=== PATIENT | female | born 1990 | race Caucasian/White ===

== ENCOUNTER 2021-03-17 09:35 | Outpatient (REF) | payer OTHER, SELFPAY ==
[2021-03-17 11:31] LABS: Hematocrit 35.3 % (37-47); Hemoglobin 10.7 g/dl (12.0-16.0); Mean Corpuscular HGB Conc 30.3 g/dl (31.0-35.0); Mean Corpuscular Hemoglobin 22.3 pg (27.0-33.0); Mean Corpuscular Volume 73.5 fL (80-98); Mean Platelet Volume 10.8 fL (9.4-12.3); Platelet Count 181 X10*3/uL (160-400); Red Cell Distribution Width 14.6 % (11.0-16.0); White Blood Count 3.9 X10*3/uL (4.8-10.8)
[2021-03-17 12:01] LABS: Alanine Aminotransferase 13 U/L (0-31); Albumin Level 4.3 g/dL (3.5-5.0); Alkaline Phosphatase 102 U/L (39-117); Anion Gap 11 (12-20); Aspartate Amino Transferase 19 U/L (5-31); Blood Urea Nitrogen 12 mg/dL (9-16); Calcium 9.2 mg/dL (8.4-10.2); Carbon Dioxide 25 mmol/L (22-29); Chloride 106 mmol/L (96-108); Estimated Glomerular Filt Rate > 60; Glucose Random 78 mg/dL (60-115); Potassium 4.2 mmol/L (3.3-5.1); Sodium 138 mmol/L (135-145); Total Protein 7.2 g/dL (6.5-8.0)
[2021-03-17 12:08] LABS: TSH reflex Free T4 0.57 uIU/mL (0.32-4.0)
== END 2021-03-17 09:36 | disposition home or self-care (01) ==
LOC: HO.HMGCLDS 09:35
PROVIDERS: PCP Internal Medicine; Visit Provider Internal Medicine
DX: R53.83 Other fatigue (principal); R39.15 Urgency of urination
CPT/HCPCS: 36415; 80053; 84443; 85027; 87086

== ENCOUNTER 2021-04-14 14:24 | Outpatient (REF) | payer OTHER, SELFPAY ==
[2021-04-14 17:08] LABS: Glucose Urine UA NEG (NEG); Leukocyte Esterase Urine NEG (NEG); Nitrite Urine NEG (NEG); Specific Gravity - Urine <= 1.005 (1.005-1.025); Urine Blood NEG (NEG); Urine Ketones NEG (NEG); Urine Protein NEG (NEG-TRACE)
[2021-04-14 17:10] LABS: Appearance Urine CLEAR; Color Urine YELLOW
[2021-04-14 17:57] LABS: Unsaturated Iron Binding 327 ug/dL
[2021-04-14 18:34] LABS: Iron 78 mcg/dL (30-160); Percent Iron Saturation 19 % (15-50); Total Iron Binding Capacity 405 mcg/dL (228-428)
== END 2021-04-14 14:25 | disposition home or self-care (01) ==
LOC: HO.HMGCLDS 14:24
PROVIDERS: PCP Internal Medicine; Visit Provider Internal Medicine
DX: R30.0 Dysuria (principal); R00.2 Palpitations; D64.9 Anemia, unspecified
CPT/HCPCS: 36415; 81003; 83540

== ENCOUNTER → 2021-05-12 14:00 | Outpatient (REF) | payer OTHER, SELFPAY ==
--- NOTE | 2021-05-12 14:35 | ECG_ITS ---
Hook-up date: 2021-05-12 14:32:00 Duration: 47:59:00 Test Indications: PALPITATIONS Medications: 715139 QRS complexes * Ventricular ectopics which represent % of total QRS comp. * Supraventricular ectopics which represent % of total QRS comp. * Paced QRS complexs which represent % of total QRS comp. VENTRICULAR ECTOPY * Isolated * Bigeminal Cycles * Couplets * Runs * Beats in Runs * Beats LONGEST at * BPM at :: -- * Beats FASTEST at * BPM at :: -- SUPRAVENTRICULAR ECTOPY * Isolated * Couplets * Runs * Beats in Runs * Beats LONGEST at * BPM at :: -- * Beats FASTEST at * BPM at :: -- HEART RATES 48 MIN at 04:42:15 2021-05-13 72 AVG 128 MAX at 14:32:38 2021-05-12 LONGEST RR 1.5520 secs at 04:42:11 2021-05-13 S-T LEVELS Channel 1 - 128 mm at 14:32:00 2021-05-12 - 128 mm at 14:32:00 2021-05-12 Channel 2 - 128 mm at 14:32:00 2021-05-12 - 128 mm at 14:32:00 2021-05-12 Channel 3 - 128 mm at 03:35:11 -- - 128 mm at 03:35:11 Underlying rhythm is sinus; Average ventricular rate 72/min; range 48-128/min; No significant ectopy, tachy or braxton-arrhythmias; P wave polarity seems variable and may indicate intermittent ectopic focus (vs non-specific); 'flutter', 'chest burning' in diary associated with sinus rhythm. Referred By: Erin Box Overread By: JACKIE KENYON
== END ==
LOC: HO.CARD 14:00
PROVIDERS: Visit Provider Internal Medicine
DX: R00.2 Palpitations (principal)
CPT/HCPCS: 93225; 93226

== ENCOUNTER 2021-08-19 12:09 | Outpatient (REF) | payer OTHER, SELFPAY ==
[2021-08-19 13:53] LABS: Appearance Urine CLEAR; Color Urine DK YELLOW; Glucose Urine UA 100 MG/DL (NEG); Leukocyte Esterase Urine 3+ (NEG); Nitrite Urine POS (NEG); PH 6.5 (5.0-8.0); Specific Gravity - Urine <= 1.005 (1.005-1.025); UACC Culture Trigger YES; Urine Blood TRACE (NEG); Urine Ketones NEG (NEG); Urine Protein 1+ MG/DL (NEG-TRACE)
[2021-08-19 14:07] LABS: Bacteria Urine 1+ /LPF; RBC Urine 0-2 /HPF (0); Squamous Epithelial Cell Urine 1+ /LPF
== END 2021-08-19 12:10 | disposition home or self-care (01) ==
LOC: HO.HMGCLDS 12:09
PROVIDERS: PCP Internal Medicine; Visit Provider Internal Medicine
DX: R30.0 Dysuria (principal); R39.15 Urgency of urination
CPT/HCPCS: 81001; 81003; 87086

== ENCOUNTER 2022-01-26 12:06 | Outpatient (REF) | payer OTHER, SELFPAY | END 2022-01-26 12:07 | disposition home or self-care (01) | LOC: HO.HMGCLDS 12:06 | PROVIDERS: Visit Provider Internal Medicine | DX: Z34.90 Encounter for supervision of normal pregnancy, unspecified, unspecified trimester (principal) | CPT/HCPCS: 36415; 84702 ==

== ENCOUNTER 2022-05-15 10:24 | Outpatient (REF) | payer OTHER, SELFPAY ==
[2022-05-15 12:25] LABS: HBsAGNum1 0.21 S/CO (0.00-0.99); HIV AB/AG Nonreactive (Nonreactive); HIV Num 1 0.08 S/CO (0.00-0.99); Hepatitis B Surface Antigen Negative (Negative); ~HepC Num1 0.06 S/CO (0.00-0.79); ~Hepatitis C Antibody Nonreactive (Nonreactive)
[2022-05-15 13:46] LABS: CT PCR NOT DETECTED (Not Detect.); NG PCR NOT DETECTED (Not Detect.)
== END 2022-05-15 10:25 | disposition home or self-care (01) ==
LOC: HO.HMGCLDS 10:24
PROVIDERS: PCP Internal Medicine; Visit Provider Advanced Practice Midwife
DX: Z34.90 Encounter for supervision of normal pregnancy, unspecified, unspecified trimester (principal)
CPT/HCPCS: 86803; 86850; 86900; 87086; 87340; 87389; 87491; 87591

== ENCOUNTER 2023-03-31 14:55 | Outpatient (REF) | payer OTHER, SELFPAY ==
[2023-03-31 17:51] LABS: Baso%MD 0.3 %; Eos%MD 0.9 %; Hematocrit 37.7 % (37.0-47.0); Hemoglobin 11.5 g/dl (12.0-16.0); IG%MD 0.3 %; Lymph%MD 19.2 %; Mean Corpuscular HGB Conc 30.5 g/dl (31.0-35.0); Mean Corpuscular Hemoglobin 21.8 pg (27.0-33.0); Mean Corpuscular Volume 71.5 fL (80.0-98.0); Mean Platelet Volume 11.9 fL (9.4-12.3); Mono%MD 6.7 %; Neut%MD 72.6 %; Platelet Count 235 X10*3/uL (160-400); Red Blood Count 5.27 X10*6/uL (4.20-5.50); Red Cell Distribution Width 14.5 % (11.0-16.0); White Blood Count 6.7 X10*3/uL (4.8-10.8)
[2023-03-31 18:14] LABS: Alanine Aminotransferase 12 U/L (0-31); Albumin Level 4.5 g/dL (3.5-5.0); Alkaline Phosphatase 123 U/L (39-117); Anion Gap 13 (12-20); Aspartate Amino Transferase 19 U/L (5-31); Bilirubin Total 0.9 mg/dL (0.0-1.0); Blood Urea Nitrogen 16 mg/dL (9-16); Calcium 9.9 mg/dL (8.4-10.2); Carbon Dioxide 28 mmol/L (22-29); Chloride 103 mmol/L (96-108); Estimated Glomerular Filt Rate > 60; Glucose Random 72 mg/dL (60-115); Iron 134 mcg/dL (30-160); Percent Iron Saturation 32 % (15-50); Potassium 4.2 mmol/L (3.3-5.1); Sodium 140 mmol/L (135-145); Total Iron Binding Capacity 423 mcg/dL (228-428); Total Protein 7.8 g/dL (6.5-8.0); Unsaturated Iron Binding 289 ug/dL
[2023-03-31 18:29] LABS: TSH reflex Free T4 0.77 uIU/mL (0.32-4.0)
[2023-03-31 18:33] LABS: Band Neutrophils Percent 2 % (3-5); Basophils Abs Manual 0.1 X10*3/uL (0.0-0.2); Basophils Percent Manual 1 % (0-2); Eosinophils Absolute Manual 0.1 X10*3/uL (0.0-0.4); Eosinophils Percent Manual 2 % (0-4); Hypochromasia 1+ (5-14) /OIF; Lymphocytes Absolute Manual 1.1 X10*3/uL (1.2-4.9); Lymphocytes Percent Manual 16 % (20-40); Microcytosis 1+ (5-14) /OIF; Monocytes Absolute Manual 0.3 X10*3/uL (0.1-1.2); Monocytes Percent Manual 5 % (2-11); Neutrophils Absolute Manual 5.1 X10*3/uL (2.0-8.3); Neutrophils Percent Manual 74 % (45-73); RBC Morphology NOTED
[2023-03-31 18:34] LABS: Platelet Estimate NORMAL (NORMAL); Platelet Morphology Comment NORMAL
== END 2023-03-31 14:56 | disposition home or self-care (01) ==
LOC: HO.HMGCLDS 14:55
PROVIDERS: PCP Internal Medicine; Visit Provider Internal Medicine
DX: R49.0 Dysphonia (principal); D64.9 Anemia, unspecified
CPT/HCPCS: 36415; 80053; 83540; 84443; 85007; 85027

== ENCOUNTER 2023-04-19 10:30 | Outpatient (REF) | payer OTHER, SELFPAY ==
--- NOTE | ~2023-04-19 | US_ITS ---
EXAMINATION: US THYROID CLINICAL INFORMATION: Nontoxic goiter, unspecified. COMPARISON: None available. TECHNIQUE: Linear transducer grayscale and color Doppler examination with attention to the region of the thyroid. FINDINGS: SIZE: Measurements of the thyroid lobes and nodules are given in sagittal, anteroposterior and transverse dimensions respectively. Right Thyroid Lobe: 6.5 x 1.7 x 1.8 cm, volume 10.4 mL. Parenchyma: The gland echotexture is homogeneous. Thyroid vascularity is normal. Left Thyroid Lobe: 5.7 x 1.4 x 2.1 cm, volume 8.8 mL. Parenchyma: The gland echotexture is homogeneous. Thyroid vascularity is normal. Isthmus: 0.4 cm in maximum AP dimension. Estimated total number of nodules greater than or equal to 1 cm: 0. Lamp Shade Maker nodules are described as follows: 1. Location: Right superior. Size: 0.6 x 0.2 x 0.5 cm, volume 0.04 mL. Nodule characteristics: Composition: Cystic(0). ACR TI-RADS total points: 0 ACR TI-RADS category: 1 2. Location: Right inferior. Size: 0.4 x 0.3 x 0.3 cm, volume 0.02 mL. Nodule characteristics: Composition: Cystic(0). ACR TI-RADS total points: 0 ACR TI-RADS category: 1 NODES: No lymphadenopathy is seen in the tissue surrounding the thyroid gland. US/US thyroid IMPRESSION: No suspicious thyroid nodule or nodule warranting follow-up. ACR TI-RADS RECOMMENDATION REFERENCE: Ultrasound-guided fine-needle aspiration, followup ultrasound, no further follow up. * TR1 (0 point) and TR2 (2 points): No FNA or follow up. * TR3 (3 points): FNA if more than or equal to 2.5 cm in maximum dimension, followup ultrasound in 1, 3 and 5 years if 1.5 to 2.4 cm in maximum dimension. * TR4 (4-6 points): FNA if more than or equal to 1.5 cm in maximum dimension, followup ultrasound in 1, 2, 3 and 5 years if 1 to 1.4 cm in maximum dimension. * TR5 (more than or equal to 7 points): FNA if more than or equal to 1 cm in maximum dimension, followup ultrasound every year for 5 years if 0.5 to 0.9 cm in maximum dimension. * TR3, TR4 or TR5 nodules that are below the size threshold for followup receive no follow up.
== END 2023-04-19 10:31 | disposition home or self-care (01) ==
LOC: HO.HMGCX 10:30
PROVIDERS: PCP Internal Medicine; Visit Provider Internal Medicine
DX: E04.9 Nontoxic goiter, unspecified (principal)
CPT/HCPCS: 76536

== ENCOUNTER 2023-06-04 09:00 | Outpatient (RCR) | payer OTHER, SELFPAY ==
--- NOTE | 2023-04-12 13:08 | MHC.PT.EP ---
[facility] [place] Office [place] Office [place] Office [address] [phone] F: [phone] F: [phone] F: [phone] F: [phone] Physical Therapy Plan of Care Date of Evaluation: Date of Surgery: Diagnosis: Separation of muscle (non traumatic), other site Rectus diastasis of lower abdomen Assessment: 32 y/o RHD female referred to PT with diastasis recti. She is the mother of 4 children ages 7.5, 5.5, 2.5, 7 months, all delivered vaginally (first with grade 3 tearing and fourth resulting in needing blood transfusion). She is currently . Currently she notices increased bulging of abdomen and feels that she cannot return to previous level of exercise. Examination shows slight L pelvic rotation, limited core and hip strength (greater restrictions on L), 2-3 finger Doreen suprumbilicus with one knuckle depth however with exhalation able to improve tension across gap, poor load transfer ability, and good squat techniques. Educated pt on log rolling, trial of 360* breathing, and TrA activation. Recommend PT 2x/week for 5 weeks to address impairments, implement HEP and optimize functional mobility. 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 Manual therapy to restore motion and function. Therapeutic exercise to improve strength and flexibility. Neuromuscular re-education for posture and balance. Therapeutic activities to return to functional activities of daily living. Electronically signed by: Yumiko Nelson PT Please sign and return to therapist. Thank you for your referral.
--- NOTE | 2023-09-28 10:29 | MHC.PT.DC ---
[facility] [place] Office [place] Office [place] Office [address] [phone] F: [phone] F: [phone] F: [phone] F: [phone] Physical Therapy Discharge Report Diagnosis: Separation of muscle (non traumatic), other site Rectus diastasis of lower abdomen Date of Surgery: Date of Evaluation: 04/12/23 Date of Discharge: 07/29/23 Treatments to Date: 5 Cancellations to Date: 2 No Shows to Date: 0 Discharge Status: Improved Function Independent with HEP Discharge Summary: Reviewed importance of balancing abdominal muscles with 'bottom-up' contraction and pt using self tactile feedback. Benefitted from gentle kegel to activate lower abdominals without upper ab gripping. Also educated pt on Doreen being whole body and therefore UE and glut strengthening will be helpful while focusing on abdominal engagement and breath. Throughout session, she had good strategies and firmness notes across linea alba, unable to sink fingers in and no bulging noted. Reviewed HEP and progression. No further questions at this time Electronically signed by: Yumiko Nelson PT Please sign and return to therapist. Thank you for your referral.
== END 2023-09-28 10:29 | disposition home or self-care (01) ==
LOC: HO.PTCHIC 09:00
PROVIDERS: PCP Internal Medicine; Visit Provider Internal Medicine
DX: M62.08 Separation of muscle (nontraumatic), other site (principal)
CPT/HCPCS: 97112; 97140; 97161

== ENCOUNTER 2024-12-04 12:28 | Outpatient (AMB) ==
--- NOTE | 2024-12-04 12:29 | MHC.PC.OV ---
Vital Signs 12/04/24 12:30 Height 5 ft 6 in Weight 127 lb BMI 20.5 BP 108/68 Blood Pressure Location Rt brachial Position Sitting Respiration 18 Pulse 64 Pulse Source Pulse Oximeter Temp 97.8 F Temp Source Oral Pulse Oximetry (%) 100 Oxygen Delivery Method Room Air Intake Visit Reasons: Bump in head Intake Note: Pt is here today for a sick visit. Pt c/o lump on the R side on the back of her head. Pt also c/o vision changes in the last several months. Allergies No Known Allergies [No Known Allergies*] Allergy (Verified 12/04/24 12:32) Medication List - Last Reconciled 12/04/24 by Erin Box MD cetirizine (Zyrtec) 10 mg PO DAILY PRN prednisone 4 tabl qd for 3 days, then 3 tabl qd for 3 days, then 2 tabl qd for 3 days then 1 tabl qd for 3 days Tobacco use date assessed: 12/04/24 Dental Screening Dental Screen Date: 12/04/24 Did you have a dental visit in the last 12 months?: Yes Did you have a dental problem in the last 6 months where you did not have access to dental care?: No Was dental information given to patient?: Patient has dentist HPI Bump in head HPI Details Patient presents complaining of the lump behind her right ear hard and tender to the touch for 2 weeks. Patient reports chronic nasal congestion postnasal drip runny nose and frequent upper respiratory infection for the last 2 months. She has 2 small children that have been sick a lot. For chronic nasal congestion patient tried [id number] antihistamine for up to 1 week and Flonase nasal spray on and off. She has been using Afrin nasal spray not daily but often when she can not fall asleep because of nasal congestion. Patient also reports fullness sensation in both ears on and off worse with the nasal congestion and decreased hearing. She denies fever chills cough night sweats [facility] Medical History Palpitations Anemia Dysuria Fatigue Anxiety Urinary urgency Right shoulder pain Cervicalgia depression Mild intermittent asthma without complication Surgical History H/O adenoidectomy Family History Father Diabetes mellitus Mother No problems noted. 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 1. Little interest or pleasure in doing things: not at all 2. Feeling down, depressed, or hopeless: not at all 3. Trouble falling or staying asleep, or sleeping too much: not at all 4. Feeling tired or having little energy: not at all 5. Poor appetite or overeating: not at all 6. Feeling bad about yourself - or that you are a failure or have let yourself or your family down: not at all 7. Trouble concentrating on things, such as reading the newspaper or watching television: not at all 8. Moving or speaking so slowly that other people could have noticed. Or the opposite - being so fidgety or restless that you have been moving around a lot more than usual: not at all 9. Thoughts that you would be better off or of hurting yourself in some way: not at all Total score: 0 Depression Screening Interpretation: Negative Depression Screening Done: Yes 90292 - PHQ-9 Billing: Yes Source: Developed by Drs. Barrington López, Juana Morgan, Joey Almendarez and colleagues, with an educational laurie from [employer]. Thrive Questionnaire Date Thrive assessed: 12/04/24 I am a: Patient What is your living situation today?: I have a steady place to live Within the past 12 months, did the food you bought not last and you didn't have the money to get more?: I choose not to answer this question Within the past 12 months, did you worry whether your food would run out before you got money to buy more?: I choose not to answer this question Do you have trouble paying for medicines?: I choose not to answer this question Do you have trouble getting transportation to medical appointments?: I choose not to answer this question Do you have trouble paying your heating and electricity bill?: I choose not to answer this question Do you have trouble taking care of your child, family member or friend?: I choose not to answer this question Do you have trouble with day-to-day activities such as bathing, preparing meals, shopping, managing finances, etc.?: I choose not to answer this question Are you currently unemployed and looking for a job?: I choose not to answer this question Are you interested in more education?: I choose not to answer this question Please select the resources that you would like help with: None Currently or been in a relationship where the following occur: I choose not to answer THRIVE Score: 0 AUDIT C Alcohol Use Questionnaire (AUDIT-C) 1. How often do you have a drink containing alcohol?: 2-4 times a month 2. How many drinks containing alcohol do you have on a typical day when you are drinking?: 1 or 2 3. How often do you have six or more drinks on one occasion?: Never Total Score: 2 ROSHAN-7 AMB Questionnaire ROSHAN-7 Date ROSHAN - 7 assessed: 12/04/24 Feeling nervous, anxious, or on edge: 0 = Not at all Not being able to stop or control worryin = Not at all Worrying too much about different things: 0 = Not at all Trouble relaxin = Not at all Being so restless that it is hard to sit still: 0 = Not at all Becoming easily annoyed or irritable: 0 = Not at all Feeling afraid as if something awful might happen: 0 = Not at all Total ROSHAN-7 score (0-4 normal; 5-9 mild; 10-14 moderate; 15-21 severe): 0 Source: Developed by Drs. Barrington López, Juana Morgan, Joey Almendarez and colleagues, with an educational laurie from [employer]. ROSHAN-7 Assessment Billing ROSHAN-7 Assessment Tool: ROSHAN-7 Assessment 60149 Review of Systems Const All systems reviewed & are unremarkable except as noted in HPI and below Eyes Reports no additional complaints ENT Reports no additional complaints Card Reports no additional complaints Resp Reports no additional complaints GI Reports no additional complaints Reports no additional complaints Physical exam (Primary Care) Vital Signs: Last Vital Signs Temp 97.8 F 12/04/24 12:30 Pulse 64 12/04/24 12:30 Resp 18 12/04/24 12:30 BP 108/68 12/04/24 12:30 Pulse Ox 100 12/04/24 12:30 Oxygen Delivery Method Room Air 12/04/24 12:30 BMI result Body Mass Index 20.5 Tobacco/Smoking Status: Tobacco use Status Tobacco use date assessed 12/04/24 12/04/24 12:38 Patient Tobacco Use Status Never used Tobacco 12/04/24 12:38 e-Cigarette/Vaping Use Never Used 12/04/24 12:30 PHQ-9: PHQ-9 Score PHQ-9: Total score 0 12/04/24 12:38 Depression Screening Interpretation: Negative Thrive Assessment: Date of Thrive Assessment Date Thrive assessed 12/04/24 12/04/24 12:38 Currently or been in a relationship where the following occur: I choose not to answer Const General: no acute distress HENMT Head: Yes normal to inspection Ears: hearing grossly normal bilaterally and TM's normal bilaterally General nose exam: Abnormal mucous membranes and turbinates present boggy and erythematous Face and sinus: Yes normal facial exam and No sinus tenderness Mouth: Normal oral and palatal mucosa present Throat: Yes postnasal drainage Eyes General: appearance normal, both eyes and all related structures Neck Other: Right posterior auricular palpable nodule firm and slightly mobile, no erythema warmth Neck: Yes supple Resp Effort & Inspection: normal respiratory effort Auscultation: clear to auscultation bilaterally Cardio Rhythm: regular rhythm Heart sounds: S1 normal heart sound present and S2 normal heart sound present Coding Level of Care Code Est Pt Level 3 (40806) Diagnoses Serous otitis media H65.90 Posterior cervical adenopathy R59.0 Additional Codes ROSHAN-7 Assessment Billing - ROSHAN-7 Assessment Tool: ROSHAN-7 Assessment 56174 ([id number]) PHQ-9 - 54388 - PHQ-9 Billing: Yes ([id number]) Assessment & Plan Assessment & Plan (1) Serous otitis media: Code(s): H65.90 - Unspecified nonsuppurative otitis media, unspecified ear Category: Medical Plan: For persistent nasal congestion and decreased hearing prednisone taper and Zyrtec are prescribed. Patient will be referred for hearing test. 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 P atient was advised not to use Afrin nasal spray. She can continue using Flonase and saline nasal spray prn (2) Posterior cervical adenopathy: Comment: right side Code(s): R59.0 - Localized enlarged lymph nodes Category: Medical Plan: Obtain ultrasound to evaluate Orders: Orders US soft tiss head and/or neck Today R59.0 - Localized enlarged lymph nodes Referrals Speech and Hearing Referral H65.90 - Unspecified nonsuppurative otitis media, unspecified ear Medications: New prednisone 4 tabl qd for 3 days, then 3 tabl qd for 3 days, then 2 tabl qd for 3 days then 1 tabl qd for 3 days 30 tabs 0RF cetirizine (Zyrtec) 10 mg PO DAILY PRN 30 tabs 3RF allergy symptoms
[2024-12-04 12:30] VITALS: BP 108/68; PULSE 64; RESP 18; TEMP 36.6; O2SAT 100; BMI 20.5
== END 2024-12-04 13:15 | disposition home or self-care (01) ==
DX: H65.90 Unspecified nonsuppurative otitis media, unspecified ear (principal); R59.0 Localized enlarged lymph nodes

== ENCOUNTER → 2024-12-04 12:28 | Outpatient (BNVA) | payer OTHER, SELFPAY | PROVIDERS: PCP Internal Medicine; Visit Provider Internal Medicine | DX: H65.91 Unspecified nonsuppurative otitis media, right ear (principal); R59.0 Localized enlarged lymph nodes | CPT/HCPCS: 96127 ==

== ENCOUNTER 2024-12-21 11:27 | Outpatient (REF) | payer OTHER, SELFPAY ==
--- NOTE | ~2024-12-21 | US_ITS ---
CLINICAL HISTORY: R59.0 - Localized enlarged lymph nodes Examination: Limited soft tissue ultrasound behind right ear Indication: Lump Comparison: None. Findings: There is a 6 mm normal-appearing lymph node noted in the region of the palpable abnormality in the right posterior auricular region. No abnormality identified on the left. Impression: Small normal-appearing right posterior auricular lymph node. This document has been electronically signed by: Morteza Staples MD on 12/22/2024 06:27:58
--- OUTSIDE RECORDS SUMMARY | 2024-12-21 13:55 | XMS_ITS | Data Portability ---
Author Organization [facility], , [facility] Address [address] [place] [address] Assessment No assessment recorded. Plan of Treatment Reminders Order Date Submit Date Provider Last Modified By Organization Details Last Modified Time Details Appointments None record ed. Lab diegoamy jasen/GC DNA, sda 2012 013 [facility], [address] [place] [address], [id number], 3 18:06:50 basic metabo lic panel 2012 013 [facility], [address] [place] [address], [address], 3 04:12:01 CBC 2012 013 [facility], [address] [place] [address], [address], 3 04:12:01 vitami n B12 2011 012 [facility], [address] [place] [address], [address], 3 03:50:09 iron defici ency profil e 2011 012 [facility], [address] [place] [address], [address], 3 03:50:09 CBC 2011 012 [facility], [address] [place] [address], [address], 3 03:50:09 compre hensiv e metabo lic panel 2011 012 [facility], [address] [place], [address], 3 03:50:09 thyroi d stimul claire alcaraz e (TSH) 2011 012 [facility], [address] [place] [address], [address], 3 03:50:09 T4 free 2011 012 [facility], [address] [place] [address], [address], 3 03:50:09 Referral None record ed. Procedures None record ed. Surgeries None record ed. Imaging x-ray, chest 2012 013 [facility] (Imaging), [address], [place], [address], 3 04:12:16 Medication Orders drospi ivet-arturo estradria -l.mef ol 3 mg-0.0 2 mg-0.4 51 mg(24) /0.451 mg(4)t ablet 2012 013 tfurcolo Not available 3 14:18:38 raniti dine 150 mg tablet 2012 013 Not available 3 16:50:03 citalo pram 10 mg tablet 2012 013 INTERFACE Not available 3 14:45:20 loraze bere 0.5 mg tablet 2012 013 mmagdalenasype r Not available 3 10:25:52 Patient TargetsNo targets recorded. Patient Instructions Encounter Date Encounter Id Patient Instructions Last Modified By Organization Details Last Modified Time 10/05/2012 [id number] vertigo: care instructions SANTHOSH Not available 05/20/2013 03:50:09 03/30/2013 [id number] is taking both b eyaz and spironolactone- does have risk for hyperkalemia.? ? ? if she will stay on spironolactone with derm, likely shoudl change her control pill formulation tfurcolo Not available 03/30/2013 17:51:19 09/07/2013 [id number] headache: care instructions Not available 09/11/2013 09:00:06 acne: care instructions Not available 09/11/2013 09:00:06 anxiety disorder : care instructions Not available 09/11/2013 09:00:06 Well Visit, Ages 18 to 65: Care Instructions Not available 09/11/2013 09:00:06 My Health To Do List discussed contraindicatiosn of OCPs- no h/o DVT or smoking.? ? ? no h/o migraines or migraines with aura.? ? ? a few isolated events of dizziness or visual change not associated with migraine- mostly anxiety related.? ? ? [facility] - if not covered by pharmacy, will have to choose other brand tfurcolo Not available 09/07/2013 17:27:42 Reason for Referral None Reported. Results Created Date Observation Date Name Description Value Unit Range Abnormal Flag Note LastModifiedBy Organization Detail LastModifiedTime 12/20/19 12 12/20/2011 CBC w/dif f WBC 10.2 K/uL 3.4-11 .2 Not Available [facility] (Outpatient) [address] [place] [address], [address], 12/20/2011 13:39:58 12/20/19 12 12/20/2011 CBC w/dif f RBC 5.76 M/uL 3.80-4 .80 high Not Available [facility] (Outpatient) [address] [place] [address], 37[address], 12/20/2011 13:39:58 12/20/19 12 12/20/2011 CBC w/dif f hemoglobin 12.8 g/dL 12.0-1 5.0 Not Available [facility] (Outpatient) [address] [place] [address], 475[address], 12/20/2011 13:39:58 12/20/19 12 12/20/2011 CBC w/dif f hematocrit 39.5 % 36.0-4 6.0 Not Available [facility] (Outpatient) [address] [place] [address], 64081, 12/20/2011 13:39:58 12/20/19 12 12/20/2011 CBC w/dif f MCV 68.6 fL 79.0-9 8.0 low Not Available [facility] (Outpatient) [address] [place] [address], 22274, 12/20/2011 13:39:58 12/20/19 12 12/20/2011 CBC w/dif f MCH 22.2 pg 27.0-3 4.8 low Not Available [facility] (Outpatient) [address] [place] [address], 14707, 12/20/2011 13:39:58 12/20/19 12 12/20/2011 CBC w/dif f MCHC 32.4 g/dL 31.5-3 6.0 Not Available [facility] (Outpatient) [address] [place] [address], 28[address], 12/20/2011 13:39:58 12/20/19 12 12/20/2011 CBC w/dif f RDW 13.2 % 10.8-1 4.6 Not Available [facility] (Outpatient) [address] [place] [address], 95856, 12/20/2011 13:39:58 12/20/19 12 12/20/2011 CBC w/dif f MPV NA fL 7.2-10 .5 Not Available [facility] (Outpatient) [address] [place] [address], 65583, 12/20/2011 13:39:58 12/20/19 12 12/20/2011 CBC w/dif f platelet count 185 K/uL 130-40 0 Not Available [facility] (Outpatient) [address] [place] [address], 13293, 12/20/2011 13:39:58 12/20/19 12 12/20/2011 CBC w/dif f neutrophils 79.4 % 45.3-7 7.7 high Not Available [facility] (Outpatient) [address] [place] [address], 53847, 12/20/2011 13:39:58 12/20/19 12 12/20/2011 CBC w/dif f lymphocytes 11.9 % 12.3-3 9.7 low Not Available [facility] (Outpatient) [address] [place] [address], 99188, 12/20/2011 13:39:58 12/20/19 12 12/20/2011 CBC w/dif f monocytes 7.8 % 4.1-12 .8 Not Available [facility] (Outpatient) [address] [place] [address], 24402, 12/20/2011 13:39:58 12/20/19 12 12/20/2011 CBC w/dif f eosinophils 0.40 % 0.00-7 .20 Not Available [facility] (Outpatient) [address] [place] [address], 81368, 12/20/2011 13:39:58 12/20/19 12 12/20/2011 CBC w/dif f basophils 0.30 % 0.00-2 .80 Not Available [facility] (Outpatient) [address] [place] [address], 39364, 12/20/2011 13:39:58 12/20/19 12 12/20/2011 CBC w/dif f absolute neutrophil 8.1 K/uL 1.4-7. 7 high Not Available [facility] (Outpatient) [address] [place] [address], 87464, 12/20/2011 13:39:58 12/20/19 12 12/20/2011 CBC w/dif f absolute lymphocyte 1.2 K/uL 0.6-3. 2 Not Available [facility] (Outpatient) [address] [place] [address], 14247, 12/20/2011 13:39:58 12/20/19 12 12/20/2011 CBC w/dif f absolute monocytes 0.8 K/uL 0.1-0. 6 high Not Available [facility] (Outpatient) [address] [place], [address], 12/20/2011 13:39:58 12/20/19 12 12/20/2011 CBC w/dif f absolute eosinophil 0.04 K/uL 0.01-0 .50 Not Available [facility] (Outpatient) [address] [place], [address], 12/20/2011 13:39:58 12/20/19 12 12/20/2011 CBC w/dif f absolute basophils 0.03 K/uL Not Available [facility] (Outpatient) [address] [place] [address], 728[address], 12/20/2011 13:39:58 12/20/19 12 12/20/2011 CBC w/dif f immature granulocyte 0.20 % 0.00-0 .50 Not Available [facility] (Outpatient) [address] [place] [address], 037[address], 12/20/2011 13:39:58 12/20/19 12 12/20/2011 CBC w/dif f absolute immature granulocyte 0.02 K/uL 0.00-0 .03 Not Available [facility] (Outpatient) [address] [place], [address], 12/20/2011 13:39:58 12/20/19 12 12/20/2011 basic metab olic panel glucose 100 mg/dL 70-99 high Not Available [facility] (Outpatient) [address] [place] [address], 44773, 12/20/2011 14:29:29 12/20/19 12 12/20/2011 basic metab olic panel BUN 7 mg/dL 6-19 Not Available [facility] (Outpatient) [address] [place], [address], 12/20/2011 14:29:29 12/20/19 12 12/20/2011 basic metab olic panel creatinine 0.9 mg/dL 0.5-1. 5 Not Available [facility] (Outpatient) [address] [place], [address], 12/20/2011 14:29:29 12/20/19 12 12/20/2011 basic metab olic panel GFR >60 Not Available [facility] (Outpatient) [address] [place], [address], 12/20/2011 14:29:29 12/20/19 12 12/20/2011 basic metab olic panel sodium 140 mEq/L 133-14 5 Not Available [facility] (Outpatient) [address] [place], [address], 12/20/2011 14:29:29 12/20/19 12 12/20/2011 basic metab olic panel potassium 3.5 mEq/L 3.3-5. 1 Not Available [facility] (Outpatient) [address] [place], [address], 12/20/2011 14:29:29 12/20/19 12 12/20/2011 basic metab olic panel chloride 102 mEq/L 96-108 Not Available [facility] (Outpatient) [address] [place], [address], 12/20/2011 14:29:29 12/20/19 12 12/20/2011 basic metab olic panel CO2 28 mEq/L 21-35 Not Available [facility] (Out[facility]) [address] [place], [address], 12/20/2011 14:29:29 12/20/19 12 12/20/2011 basic metab olic panel calcium 10.0 mg/dL 8.4-10 .3 Not Available [facility] (Outpatient) [address] [place], [address], 12/20/2011 14:29:29 12/20/19 12 12/20/2011 basic metab olic panel anion gap 14 mEq/L 10-20 Not Available [facility] (Outpatient) [address] [place], [address], 12/20/2011 14:29:29 12/20/19 12 12/20/2011 C-maryann ctive prote in (CRP) C-reactive protein <0.1 mg/dL 0.0-0. 5 Not Available [facility] (Outpatient) [address] [place], [address], 12/20/2011 14:29:31 12/20/19 12 12/20/2011 hepat ic funct ion panel alkaline phosphatase 104 U/L 39-117 Not Available [facility] (Outpatient) [address] [place], [address], 12/20/2011 14:29:32 12/20/19 12 12/20/2011 hepat ic funct ion panel total bilirubin 0.7 mg/dL 0.0-1. 5 Not Available [facility] (Outpatient) [address] [place], [address], 12/20/2011 14:29:32 12/20/19 12 12/20/2011 hepat ic funct ion panel bilirubin direct <0.2 mg/dL 0.0-0. 3 Not Available [facility] (Outpatient) [address] [place], [address], 12/20/2011 14:29:32 12/20/19 12 12/20/2011 hepat ic funct ion panel bilirubin indirect see below mg/dL not able to calcu late. Not Available [facility] (Outpatient) [address] [place], [address], 12/20/2011 14:29:32 12/20/19 12 12/20/2011 hepat ic funct ion panel AST (SGOT) 14 U/L 0-37 Not Available [facility] (Outpatient) [address] [place], [address], 12/20/2011 14:29:32 12/20/19 12 12/20/2011 hepat ic funct ion panel ALT (SGPT) 9 U/L 0-40 Not Available [facility] (Outpatient) [address] [place], [address], 12/20/2011 14:29:32 12/20/19 12 12/20/2011 hepat ic funct ion panel total protein 7.7 g/dL 6.5-8. 0 Not Available [facility] (Outpatient) [address] [place], [address], 12/20/2011 14:29:32 12/20/19 12 12/20/2011 hepat ic funct ion panel albumin 4.7 g/dL 3.9-4. 8 Not Available [facility] (Outpatient) [address] [place], [address], 12/20/2011 14:29:32 12/20/19 12 12/20/2011 hepat ic funct ion panel globulin 3.0 gm/dL 1.0-4. 8 Not Available [facility] (Outpatient) [address] [place], [address], 12/20/2011 14:29:32 12/20/19 12 12/20/2011 hepat ic funct ion panel A/G ratio 1.6 gm/dL 1.0-4. 8 Not Available [facility] (Outpatient) [address] [place], [address], 12/20/2011 14:29:32 12/20/19 12 12/20/2011 amyla se amylase 65 U/L 28-100 Not Available [facility] (Outpatient) [address] [place], [address], 12/20/2011 14:29:33 12/20/19 12 12/20/2011 lipas e lipase 28 U/L 16-63 Not Available [facility] (Outpatient) [address] [place], [address], 12/20/2011 14:29:34 12/20/19 12 12/20/2011 occul t blood , zacke n occult blood card #1 Negati ve negati ve Not Available [facility] (Outpatient) [address] [place], [address], 12/20/2011 15:03:23 12/20/19 12 12/20/2011 cultu re, stool culture stool No [place] [facility], Shigel la or Campyl obacte r isolat ed Not Available [facility] (Outpatient) [address] [place], [address], 12/23/2011 13:47:47 10/06/20 12 10/06/2012 thyro id stimu latin g hormo ne (TSH) TSH 0.99 uIU/m L 0.50-6 .00 the ameri can colle ge of endoc rinol ogy and ameri can thyro id assoc iatio n recom mend goal TSH value s betwe en 1.0-2 .5 mIU/m L. Not Available [address], [address], 10/06/2012 11:20:27 10/06/20 12 10/06/2012 CBC WBC 4.9 K/? ? ?L 4.0-10 .0 Not Available [address], [address], 10/06/2012 11:32:51 10/06/20 12 10/06/2012 CBC RBC 5.01 M/? ? ?L 3.93-5 .22 Not Available [address], [address], 10/06/2012 11:32:51 10/06/20 12 10/06/2012 CBC HGB 11.1 g/dL 11.2-1 5.7 low Not Available [address], [address], 10/06/2012 11:32:51 10/06/20 12 10/06/2012 CBC HCT 35.4 % 34.1-4 4.9 Not Available [address], [address], 10/06/2012 11:32:51 10/06/20 12 10/06/2012 CBC MCV 70.7 ? ? ?L 79.4-9 4.8 low Not Available [address], [address], 10/06/2012 11:32:51 10/06/20 12 10/06/2012 CBC MCH 22.2 pg 25.6-3 2.2 low Not Available [address], [address], 10/06/2012 11:32:51 10/06/20 12 10/06/2012 CBC MCHC 31.4 g/dL 32.2-3 5.5 low Not Available [address], [address], 10/06/2012 11:32:51 10/06/20 12 10/06/2012 CBC plt 235.0 K/? ? ?L 182.0- 369.0 Not Available [address], [address], 10/06/2012 11:32:51 10/06/20 12 10/06/2012 CBC MPV 13.3 9.4-12 .3 high Not Available [address], [address]659, 10/06/2012 11:32:51 10/06/20 12 10/06/2012 CBC neut% 57.1 % 34.0-7 1.1 Not Available [address], [address], 10/06/2012 11:32:51 10/06/20 12 10/06/2012 CBC neut# 2.8 1.6-6. 1 Not Available [address], [address], 10/06/2012 11:32:51 10/06/20 12 10/06/2012 CBC lymph % 31.4 % 19.3-5 1.7 Not Available [address], [address], 10/06/2012 11:32:51 10/06/20 12 10/06/2012 CBC lymph # 1.5 K/? ? ?L 1.2-3. 7 Not Available [address], [address], 10/06/2012 11:32:51 10/06/20 12 10/06/2012 CBC mono% 9.0 % 4.7-12 .5 Not Available [address], [address], 10/06/2012 11:32:51 10/06/20 12 10/06/2012 CBC mono# 0.4 0.2-0. 4 high Not Available [address], [address], 10/06/2012 11:32:51 10/06/20 12 10/06/2012 CBC eo% 2.3 % 0.7-5. 8 Not Available [address], [address], 10/06/2012 11:32:51 10/06/20 12 10/06/2012 CBC eo# 0.1 0.0-0. 4 Not Available [address], [address]47[address], 10/06/2012 11:32:51 10/06/20 12 10/06/2012 CBC baso% 0.2 % 0.1-1. 2 Not Available [address], [address], 10/06/2012 11:32:51 10/06/20 12 10/06/2012 CBC baso# 0.0 0.0-0. 1 low Not Available [address] [place], [address], 10/06/2012 11:32:51 10/06/20 12 10/06/2012 CBC RDW-CV 13.7 % 11.7-1 4.4 Not Available [address], [address], 10/06/2012 11:32:51 10/06/20 12 10/06/2012 RBC morph ology poik slight Not Available [address], [address], 10/06/2012 11:32:51 10/06/20 12 10/06/2012 RBC morph ology aniso slight Not Available [address], [address], 10/06/2012 11:32:51 10/06/20 12 10/06/2012 RBC morph ology micro modera te Not Available [address], [address], 10/06/2012 11:32:51 10/06/20 12 10/06/2012 RBC morph ology ovalocyte slight Not Available [address], [address], 10/06/2012 11:32:51 10/06/20 12 10/06/2012 compr ehens alondra metab olic panel glucose 76 mg/dL 70-100 Not Available [address], [address], 10/06/2012 11:34:47 10/06/20 12 10/06/2012 compr ehens alondra metab olic panel BUN 12 mg/dL 7-18 Not Available [address], [address], 10/06/2012 11:34:47 10/06/20 12 10/06/2012 compr ehens alondra metab olic panel creatinine 1.0 mg/dL 0.8-1. 3 Not Available [address], [address], 10/06/2012 11:34:47 10/06/20 12 10/06/2012 compr ehens alondra metab olic panel B/C 12.0 ratio Not Available [address], [address], 10/06/2012 11:34:47 10/06/20 12 10/06/2012 compr ehens alondra metab olic panel GFR 76.3 mL/mi n recom orly d GFR by the natio nal kidne y found ation >60 mL/mi n/1.7 3m2 - gley l <60 mL/mi n/1.7 3m2 - chron ic kidne y disea se <15 mL/mi n/1.7 3m2 - kidne y failu re Not Available [address], [address], 10/06/2012 11:34:47 10/06/20 12 10/06/2012 compr ehens alondra metab olic panel GFR - if 87.7 mL/mi n for afric an ameri can patie nts: resul ts multi plied by 1.21 Not Available [address], [address], 10/06/2012 11:34:47 10/06/20 12 10/06/2012 compr ehens alondra metab olic panel sodium 139 mmol/ L 136-14 5 Not Available [address], [address], 10/06/2012 11:34:47 10/06/20 12 10/06/2012 compr ehens alondra metab olic panel potassium 3.8 mmol/ L 3.5-5. 1 Not Available [address], 727[address], 10/06/2012 11:34:47 10/06/20 12 10/06/2012 compr ehens alondra metab olic panel chloride 104 mmol/ L 96-107 Not Available [address], 359[address], 10/06/2012 11:34:47 10/06/20 12 10/06/2012 compr ehens alondra metab olic panel _anion gap 5.0 Not Available [address], [address], 10/06/2012 11:34:47 10/06/20 12 10/06/2012 compr ehens alondra metab olic panel CO2 30 mmol/ L 21-32 Not Available [address], [address], 10/06/2012 11:34:47 10/06/20 12 10/06/2012 compr ehens alondra metab olic panel calcium 9.0 mg/dL 8.5-10 .3 Not Available [address], [address], 10/06/2012 11:34:47 10/06/20 12 10/06/2012 compr ehens alondra metab olic panel total protein 7.0 g/dL 6.4-8. 2 Not Available [address], [address], 10/06/2012 11:34:47 10/06/20 12 10/06/2012 compr ehens alondra metab olic panel albumin 4.1 g/dL 3.4-5. 0 Not Available [address], [address], 10/06/2012 11:34:47 10/06/20 12 10/06/2012 compr ehens alondra metab olic panel globulin 2.9 g/dL Not Available [address], [address], 10/06/2012 11:34:47 10/06/20 12 10/06/2012 compr ehens alondra metab olic panel A/G 1.4 ratio 0.8-2. 0 Not Available [address], [address], 10/06/2012 11:34:47 10/06/20 12 10/06/2012 compr ehens alondra metab olic panel total bilirubin 0.50 mg/dL 0.00-1 .00 Not Available [address], [address], 10/06/2012 11:34:47 10/06/2010/06/2012 compr ehens alondra metab olic panel AST 15 U/L 15-37 Not Available [address], 8[address], 10/06/2012 11:34:47 10/06/2010/06/2012 compr ehens alondra metab olic panel ALT 31 U/L 30-65 Not Available [address], [address], 10/06/2012 11:34:47 10/06/2010/06/2012 compr ehens alondra metab olic panel alk. phos. 103 U/L 50-136 Not Available [address], [address]67[address], 10/06/2012 11:34:47 10/06/2010/07/2012 iron defic iency profi le iron 68 ug/dL 35-150 Not Available [address], [address], 10/07/2012 08:02:08 10/06/20 12 10/07/2012 iron defic iency profi le T.I.B.C. 356 ug/dL 250-45 0 Not Available [address], [address], 10/07/2012 08:02:08 10/06/20 12 10/07/2012 iron defic iency profi le % saturation 19.1 % Not Available [address], [address], 10/07/2012 08:02:08 10/06/20 12 10/07/2012 T4 free free T4 0.91 NG/dL 0.75-1 .54 Not Available [address], [address], 10/07/2012 09:15:15 10/06/20 12 10/12/2012 vitam in B12 vitamin B12 448 pg/mL 230-10 50 Not Available [address], [address], 10/12/2012 11:23:33 03/31/20 13 03/31/2013 basic metab olic panel glucose 96 mg/dL 70-100 Not Available [address], [address], 03/31/2013 10:35:38 03/31/20 13 03/31/2013 basic metab olic panel BUN 10 mg/dL 7-18 Not Available [address], 29911, 03/31/2013 10:35:38 03/31/20 13 03/31/2013 basic metab olic panel creatinine 1.0 mg/dL 0.8-1. 3 Not Available [address], 58[address], 03/31/2013 10:35:38 03/31/20 13 03/31/2013 basic metab olic panel B/C 10.0 ratio Not Available [address], [address], 03/31/2013 10:35:38 03/31/20 13 03/31/2013 basic metab olic panel GFR 76.3 mL/mi n recom orly d GFR by the natio nal kidne y found ation >60 mL/mi n/1.7 3m2 - gely l <60 mL/mi n/1.7 3m2 - chron ic kidne y disea se <15 mL/mi n/1.7 3m2 - kidne y failu re Not Available [address], [address], 03/31/2013 10:35:38 03/31/20 13 03/31/2013 basic metab olic panel GFR - if 87.7 mL/mi n for afric an ameri can patie nts: resul ts multi plied by 1.21 Not Available [address], [address], 03/31/2013 10:35:38 03/31/20 13 03/31/2013 basic metab olic panel sodium 139 mmol/ L 136-14 5 Not Available [address], [address], 03/31/2013 10:35:38 03/31/20 13 03/31/2013 basic metab olic panel potassium 3.8 mmol/ L 3.5-5. 1 Not Available [address], [address], 03/31/2013 10:35:38 03/31/20 13 03/31/2013 basic metab olic panel chloride 102 mmol/ L 96-107 Not Available [address], [address], 03/31/2013 10:35:38 03/31/20 13 03/31/2013 basic metab olic panel _anion gap 9.0 Not Available [address], 13939, 03/31/2013 10:35:38 03/31/20 13 03/31/2013 basic metab olic panel CO2 28 mmol/ L 21-32 Not Available [address], [address], 03/31/2013 10:35:38 03/31/20 13 03/31/2013 basic metab olic panel calcium 8.4 mg/dL 8.5-10 .3 low Not Available [address], 14[address], 03/31/2013 10:35:38 03/31/20 13 03/31/2013 CBC WBC 8.3 K/? ? ?L 4.0-10 .0 Not Available [address], [address], 03/31/2013 14:36:50 03/31/20 13 03/31/2013 CBC RBC 4.89 M/? ? ?L 3.93-5 .22 Not Available [address], [address], 03/31/2013 14:36:50 03/31/20 13 03/31/2013 CBC HGB 11.0 g/dL 11.2-1 5.7 low Not Available [address], [address], 03/31/2013 14:36:50 03/31/20 13 03/31/2013 CBC HCT 34.5 % 34.1-4 4.9 Not Available [address], 31[address], 03/31/2013 14:36:50 03/31/20 13 03/31/2013 CBC MCV 70.6 ? ? ?L 79.4-9 4.8 low Not Available [address], [address], 03/31/2013 14:36:50 03/31/20 13 03/31/2013 CBC MCH 22.5 pg 25.6-3 2.2 low Not Available [address], [address], 03/31/2013 14:36:50 03/31/20 13 03/31/2013 CBC MCHC 31.9 g/dL 32.2-3 5.5 low Not Available [address], [address], 03/31/2013 14:36:50 03/31/20 13 03/31/2013 CBC plt 217.0 K/? ? ?L 182.0- 369.0 Not Available [address], [address], 03/31/2013 14:36:50 03/31/20 13 03/31/2013 CBC MPV 12.3 9.4-12 .3 Not Available [address], [address], 03/31/2013 14:36:50 03/31/20 13 03/31/2013 CBC neut% 72.2 % 34.0-7 1.1 high Not Available [address], [address], 03/31/2013 14:36:50 03/31/20 13 03/31/2013 CBC neut# 6.0 1.6-6. 1 Not Available [address], [address], 03/31/2013 14:36:50 03/31/20 13 03/31/2013 CBC lymph % 17.6 % 19.3-5 1.7 low Not Available [address], [address], 03/31/2013 14:36:50 03/31/20 13 03/31/2013 CBC lymph # 1.5 K/? ? ?L 1.2-3. 7 Not Available [address], [address], 03/31/2013 14:36:50 03/31/20 13 03/31/2013 CBC mono% 8.9 % 4.7-12 .5 Not Available [address], [address], 03/31/2013 14:36:50 03/31/20 13 03/31/2013 CBC mono# 0.7 0.2-0. 4 high Not Available [address], [address], 03/31/2013 14:36:50 03/31/20 13 03/31/2013 CBC eo% 1.1 % 0.7-5. 8 Not Available [address], [address], 03/31/2013 14:36:50 03/31/20 13 03/31/2013 CBC eo# 0.1 0.0-0. 4 Not Available [address], [address], 03/31/2013 14:36:50 03/31/20 13 03/31/2013 CBC baso% 0.2 % 0.1-1. 2 Not Available [address], [address], 03/31/2013 14:36:50 03/31/20 13 03/31/2013 CBC baso# 0.0 0.0-0. 1 low Not Available [address], [address], 03/31/2013 14:36:50 03/31/20 13 03/31/2013 CBC RDW-CV 14.0 % 11.7-1 4.4 Not Available [address], [address], 03/31/2013 14:36:50 03/31/20 13 03/31/2013 RBC morph ology hypochrom mild lplt= large platl ets appea r on smear Not Available [address], [address], 03/31/2013 14:55:28 03/31/20 13 03/31/2013 RBC morph ology ovalocyte mild Not Available [address], [address], 03/31/2013 14:55:28 09/07/20 13 09/10/2013 chlam ydia/ GC DNA, sda N. gonorrhoeae Neg negati ve Not Available [address], [address], 09/10/2013 18:06:50 09/07/20 13 09/10/2013 chlam ydia/ GC DNA, sda C. trachomatis Neg negati ve Not Available [address], [address], 09/10/2013 18:06:50 03/30/20 13 03/30/2013 x-ray , chest OBSERV ATION: PA and latera l chest: Histor y: Shortn ess of breath No prior studie s are availa ble for compar traci. No active lung or pleura l pathol ogy is seen. The heart and medias tinal contou rs appear normal . No focal bone pathol ogy is seen. Impres krystyna: Normal chest radiog raph. Electr onical ly signed Kacy Mayfield luz marina: Tristin Turner MD [facility] (Imaging) [address] , [place], [address], 05/20/2013 04:11:48 Result Notes None recorded. Problems Name Problem SNOMED Code Status Onset Date Resolution Date Notes Provider Name and Address Organization Details Recorded Time Anxiety [id number] Active Na Furcolo D.O. [address] [place] [address], [phone] , [facility] 3 17:28:03 Acne 71526613 Active Na Furcolo D.O. [address] [place] [address], [phone] , [facility] 3 17:28:03 Injury of finger 79038683 Completed 200108/03/2011 Not Available [facility] 3 03:04:39 Joint pain in ankle and foot Completed 200508/03/2011 Not Available [facility] 3 03:04:39 Abdominal pain 01061149 Completed 200608/03/2011 Not Available [facility] 3 03:04:39 Precordial pain 29914768 Completed 08/03/2011 Not Available [facility] 3 03:04:39 Knee pain Completed 200508/03/2011 Not Available [facility] 3 03:04:39 Injury of knee 862845963 Completed 200408/03/2011 Not Available [facility] 3 03:04:39 Sprain of superior tibiofibul ar ligament 897031389 Completed 200708/03/2011 Not Available [facility] 3 03:04:39 Anemia 982875185 Active 2003 Not Available [facility] 3 03:04:39 Astigmatis m 36396802 Completed 200708/03/2011 Not Available [facility] 3 03:04:39 Backache 386048718 Completed 200708/03/2011 Not Available [facility] 3 03:04:39 Pain in wrist 33740201 Completed 200108/03/2011 Not Available [facility] 3 03:04:39 Pain in limb 94646072 Completed 200708/03/2011 Not Available [facility] 3 03:04:39 Sprain of ankle 22047373 Completed 200508/03/2011 Not Available [facility] 3 03:04:39 Problem Notes None recorded. Procedures Surgical History Date Name Laterality Status Provider Name and Address Organization Details Recorded Time 1 Plantar Wart completed Maral Pelayo MD [address] [place] [address], [phone], [facility] 07/01/2011 12:34:29 Imaging Results Imaging Date Name Status LastModified by Organiz [facility] Details LastModified Time 03/30/2013 x-ray, chest completed [facility] (Imaging) [address], [place], [address], 05/20/2013 04:11:48 Procedure Notes None recorded. Medical Equipment None Reported. Allergies No known drug allergies Medications Name Sig Start Date Stop Date Status Note LastModified by Organization Details LastModified Time doxycyclin e hyclate 100 mg capsule Take 1 capsule every day by oral route. active prescribe d by a dermatolo gist Not Available Not Available Not Available citalopram 10 mg tablet Take 1 tablet every day by oral route at bedtime. 2012 active Not Available Not Available Not Avai lable Diflucan 150 mg tablet Take 1 tablet every day by oral route. 2010 active Not Available Not Available Not Avai lable lorazepam 0.5 mg tablet 0.5 -1 tab 3 times a day prn for anxiety 2012 active Not Available Not Available Not Avai lable ranitidine 150 mg tablet Take 1 TABLET 2 TIMES A DAY by oral route on an empty stomach with water 20 mins before eating or drinking 2012 active Not Available Not Available Not Avai lable spironolac tone 50 mg tablet Take 1 tablet every day by oral route. active Not Available Not Available No t Available Reclipsen (28) 0.15 mg-0.03 mg tablet TAKE ONE TABLET BY MOUTH DAILY 2013 active Not Available Not Available Not Avai lable drospiren- e.estrad-l .mefol 3 mg-0.02 mg-0.451 mg(24)/0.4 51 mg(4)table t Take 1 tablet every day by oral route. 2012 active Not Available Not Available Not Avai lable Vitals Date Recorded Body height Body weight Body mass index (BMI) Heart rate Systolic blood pressure Diastolic blood pressure Provider Name and Address Organization Details Last Updated DateTime 2 165.1 cm 25742.4 9203 g 19.8 kg/m2 78 /min 102 mm[Hg] 70 mm[Hg] [facility] 2 13:55:22 Date Recorded Body height Body weight Body mass index (BMI) Heart rate Oxygen saturation Oxygen saturation in Arterial blood by Pulse oximetry Systolic blood pressure Diastolic blood pressure Provider Name and Address Organization Details Last Updated DateTime 2 165.1 cm 14332.6 7677 g 20.1 kg/m2 72 /min 100 % 100 % 98 mm[Hg] 62 mm[Hg] Mely [facility] 2 14:56:37 Date Recorded Body height Body weight Body mass index (BMI) Heart rate Systolic blood pressure Diastolic blood pressure Provider Name and Address Organization Details Last Updated DateTime 3 165.1 cm 91705.5 42501 g 19.2 kg/m2 80 /min 94 mm[Hg] 74 mm[Hg] Judie Fine [facility] 3 16:25:01 Date Recorded Body height Body weight Body mass index (BMI) Heart rate Systolic blood pressure Diastolic blood pressure Provider Name and Address Organization Details Last Updated DateTime 3 165.1 cm 69575.0 91457 g 18.9 kg/m2 91 /min 102 mm[Hg] 85 mm[Hg] Padmini Vallejo [facility] 3 13:49:48 Date Recorded Body height Body weight Body mass index (BMI) Heart rate Systolic blood pressure Diastolic blood pressure Provider Name and Address Organization Details Last Updated DateTime 3 165.1 cm 26008.1 2255 g 19.1 kg/m2 66 /min 98 mm[Hg] 64 mm[Hg] Judie Fine LPN [facility] 3 16:51:14 Social History Question Answer Notes LastModified by Organizat ion Details LastModified Time Tobacco Smoking Status Never Smoker Not Available [facility] 09/10/2011 04:57:24 Do You Have An Advance Directive? No Information not available 09/10/2011 What Is Your Level Of Alcohol Consumption? Moderate Information not available 09/07/2013 What Is Your Level Of Caffeine Consumption? Occasional Information not available 09/10/2011 How Much Tobacco Do You Chew? None Information not available 09/10/2011 What Type Of Diet Are You Following? 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 0 Information not available 09/07/2013 Live Alone Or With Others? With Others Information not available 09/10/2011 Patient Has Health Care Proxy Signed And In Chart No Form Given To Pt 09/07/13 Information not available 09/07/2013 Marital Status Informatio n not available 09/07/2013 How Many Children Do You Have? 0 Information not available 09/10/2011 Seat Belts Used Routinely Yes Information not available 09/10/2011 Are You Sexually Active? Yes Only One Sexual Encounter- Used Condom [email or web address] Information not available 08/03/2011 Smoke Alarm In Home Yes Information not available 09/10/2011 General Stress Level Low Information not available 09/07/2013 Do You Use Sunscreen Routinely? No 17 Information not available 09/10/2011 Sex: Unknown Functional Status None recorded. Mental Status None recorded. Family History Relationship Description Onset Age of this Age Resolved Age Notes LastModified by Organization Details LastModified Time Father Diabetes mellitus [email or web address] Not available 2012 17:07:29 Notes:mother healthy 3 sibli ngs- healthy Medical History Condition Response acne Y Anxiety Y Asthma Gynecological History Statement/Question Response Menses Monthly Y Duration of Flow (days) 3 Frequency of Cycle (Q days) 28 Obstetrics History GPAL:G 0 P 0 0 0 0 Immunizations Vaccine Type Date Status Note Provider Nam e and Address Organization Details Recorded Time Hep B, adolescent or pediatric 2 completed CODY Negron, [facility] 04/25/2014 15:21:20 Td(adult) unspecified formulation 1 completed CODY Negron, [facility] 04/25/2014 15:21:20 DTP 9 completed Ivette Hoffmann LPN null, [facility] 04/25/2014 15:21:20 MMR 5 completed Ivette Hoffmann LPN null, [facility] 04/25/2014 15:21:20 Tdap 0 completed Ivette Hoffmann LPN null, [facility] 04/25/2014 15:21:20 meningococcal ACWY, unspecified formulation 7 completed Ivette Hoffmann LPN null, [facility] 04/25/2014 15:21:20 HPV, unspecified formulation 0 completed Ivette Hoffmann LPN null, [facility] 04/25/2014 15:21:20 MMR 0 completed Ivette Hoffmann LPN null, [facility] 04/25/2014 15:21:20 OPV 9 completed Ivette Hoffmann LPN null, [facility] 04/25/2014 15:21:20 DTP 5 completed Ivette Hoffmann LPN null, [facility] 04/25/2014 15:21:20 DTP 9 completed Ivette Hoffmann LPN null, [facility] 04/25/2014 15:21:20 Hep B, adolescent or pediatric 0 completed Ivette Hoffmann LPN null, [facility] 04/25/2014 15:21:20 OPV 9 completed Ivette Hoffmann LPN null, [facility] 04/25/2014 15:21:20 OPV 0 completed Ivette Hoffmann LPN null, [facility] 04/25/2014 15:21:20 OPV 5 completed Ivette Hoffmann LPN null, [facility] 04/25/2014 15:21:20 HPV, unspecified formulation 8 completed Ivette Hoffmann LPN null, [facility] 04/25/2014 15:21:20 Hib (HbOC) 0 completed Ivette Hoffmann LPN null, [facility] 04/25/2014 15:21:20 DTP 9 completed Ivette Hoffmann LPN null, [facility] 04/25/2014 15:21:20 HPV, unspecified formulation 7 completed Ivette Hoffmann LPN null, [facility] 04/25/2014 15:21:20 Hep B, adolescent or pediatric 1 completed Ivette Hoffmann LPN null, [facility] 04/25/2014 15:21:20 DTP 0 completed Ivette Hoffmann LPN null, [facility] 04/25/2014 15:21:20 Past Encounters Encounter ID Performer Location Encounter Start Date Encounter Closed Date Diagnosis/Indication Diagnosis SNOMED-CT Code Diagnosis ICD10 Code Diagnosis Note [id number] Radiology , [address] [address] 02/27/2002 14:00:00 11/14/2008 02:02:29 [id number] Radiology , [address] [address] 04/21/2002 16:08:36 11/14/2008 02:02:29 [id number] LAB - [address] [address] 04/11/2004 11:28:12 04/11/2004 11:28:30 [id number] LAB - [facility] [place] [facility] [place] [address] 08/06/2004 11:43:41 08/06/2004 11:57:00 [id number] LAB - [facility] [facility] [place] [address] 04/09/2005 11:51:39 04/09/2005 11:52:02 [id number] Radiology , [facility] [facility] [place] [address] 07/09/2005 08:49:27 07/09/2005 08:50:51 [id number] Radiology , [facility] [facility] [place] [address] 07/09/2005 00:00:00 11/14/2008 02:02:29 [id number] LAB - [facility] [facility] [place] [address] 07/09/2005 09:27:34 07/09/2005 09:28:02 [id number] Physical Therapy, [facility] [facility] [place] [address] 01/12/2006 08:09:19 01/12/2006 09:31:08 [id number] LAB - [facility] [facility] [place] [address] 03/30/2006 12:12:37 03/30/2006 12:12:46 [id number] Radiology , [facility] [place] [address] 07/20/2006 09:34:07 07/20/2006 14:13:24 [id number] Radiology , [facility] [place] [address] 07/20/2006 00:00:00 11/14/2008 02:02:29 [id number] LAB - [facility] [facility] [place] [address] 05/04/2007 15:41:32 05/04/2007 15:41:47 [id number] Radiology , [facility] [facility] [place] [address] 10/26/2007 10:33:03 10/26/2007 11:01:53 [id number] Radiology , [facility] [place] [address] 10/26/2007 00:00:00 11/14/2008 02:02:29 [id number] Eye Care, [facility] [facility] [place] [address] 10/27/2007 10:23:03 10/27/2007 15:33:08 [id number] LAB - [facility] [place] [address] 10/26/2007 11:34:23 10/26/2007 11:34:29 [id number] Radiology , [facility] [place] [address] 03/27/2008 10:23:03 03/27/2008 13:13:03 [id number] Radiology , [facility] [address] [place] [address] 03/27/2008 00:00:00 11/14/2008 02:02:29 [id number] Physical Therapy, [facility] [address] [place] [address] 04/05/2008 07:56:47 04/05/2008 07:57:12 [id number] Radiology , [facility] [place] [address] 06/11/2010 15:01:18 06/13/2010 10:06:[id number] [place] [address] 07/01/2011 11:25:11 07/01/2011 12:34:[id number] [place] [address] 08/03/2011 08:34:08 08/03/2011 09:21:[id number] [place] [address] 11/04/2011 11:07:47 11/04/2011 11:51:[id number]OM [address] [place] [address] 12/22/2011 13:48:05 12/22/2011 14:11:[id number] [place] [address] 10/05/2012 14:47:48 10/05/2012 15:12:37 [id number] Na SANTOS [address] [place] [address] 03/30/2013 15:52:00 03/30/2013 16:53:38 [id number] CODY Heard [address] [place] [address] 07/10/2013 13:37:51 07/10/2013 14:55:05 Panic attack [id number] Breathing exercises, avoiding caffeine and stimulatin g meds like sudafed or otc cold products. We have opted to trial a low dose of citalopram at hs. She will trial lorazepam at a low dose given her petite size. Can be used preventati vely and prn for anxiety Gastritis [id number] Possib ly related to anxiety and stress. We discussed culprit foods to avoid and proper med dosing. [id number] Na SANTOS, [facility], OFFICE [address] [place] [address] 09/07/2013 16:08:33 09/08/2013 08:10:25 Examination for population survey [id number] Adult heal th examination [id number] see Risk Assessment and Lifestyle Change Counseling section above Counseling [id number] Acne 33735100 on spironolac tone and beyaz OCP Headache 82812794 mild headache, resolved, no aura assocaited , no history of migraine. Anxiety 71999559 mostly improved, weaning off citalopram . uses lorazepam sparingly Health Concerns Section Related Observation LastModified by Organization Detai ls LastModified Time None Recorded Concern Status LastModified by Organization Details LastModified Time None Recorded Advance Directives Directive N: Payers Encounter Date Sequence Insurance Name Policy Number Policy Desai Covered Member ID Desai Member ID Guarantor Name 12/22/2011 1 [facility]) [id number] Erin G Haqq [id number] Erin G Haqq 10/05/2012 1 [facility]) [id number] Erin G Haqq [id number] Erin G Haqq 03/30/2013 1 [facility]) [id number] Erin G Haqq [id number] Erin G Haqq 07/10/2013 1 [facility] [id number] Erin G Haqq [id number] Erin G Haqq 09/07/2013 1 [facility]) [id number] Erin G Haqq [id number] Erin G Haqq Notes Date Note Type Note Provider Name and Address Organization Details Recorded Time 12/22/2011 text/html Erin is here f or follow-up on [facility] ER visit on 12/20/10. Pt had presented with 1 week of fatigue, anorexia, some nausea, dizziness. Occasional abdominal cramping but resolving Recent travel to [place] where she did drink water. No fever. No diarrhea. Likely viral etiology. Today pt states she is feeling better with return of appetite. Fatigue, weakness improved today. Some lightheadedness. Pushing fluids. ? ameoba parasite. Calli Mon NP [address] [place], [address], [facility] 12/22/2011 14:13:53 10/05/2012 text/html Erin is here f or fatigue, intermittent dizziness x month. Yesteday felt like she was not getting full deep breath. SOB. No cough. No hx of asthma. More frequent headaches. Trouble with vision. Seen by eye doctor and just started wearing glasses. Hx of anemia.Not taking iron right now. Sleeping well; 7-8 hrs per night. Wakes feeling unrested. Very tired. Hx of thalessemia minor. Bowels have been more slow. Not bad constipation but moer difficult to pass. No skin changes. Mood-more irritabile. No patience. very thirsty. Calli Mon NP [address] [place], [address], [facility] 10/05/2012 15:14:28 03/30/2013 text/html had sensation of not breathing well. was lightheaded. had panic attack. assoc nausea episodes of freezing chills, not sweaty. no rash. took ibuprofen and resolved feels SOB like she can only take a shallow breath. no cough or sputum. no allergy symtpoms denies any new meds other than spironolactone- which she has been taking for about 2.5 motnhs. she stopped on her own over 2 weeks ago and then restarted as felt no different off the med. is helping with her acne. Na Han D.O. [address] [place], [address], [facility] 03/30/2013 17:51:31 07/10/2013 text/html Pt reports that she feels different symptoms at different times but she usually feels shallow breathing, chest pain, tingling in her fingers and arms. Once the tingling sets in she feels hot, dizzy and lightheaded. She understands this is related to panic. She does not have hx of anxiety in the past. She feels she is a healthy worrier. Her anxiety is usually in her stomach--butterfli es, diarrhea. She was seen earlier this year in March for this. Note reviewed for content. She had an anxiety attack at her bridal shower. She gets nauseous and vomits on occasion with the presentation of panic. No signs of any viral illness. Most of the time she feels like she can pull herself into better space. She feels exhausted afterward. Her younger sister is also struggling with anxiety. Barrington Oliveira MD [address] [place] [address], [phone], [facility] 07/23/2013 22:44:03 OBGyn Episode No OBEpisode recorded.
== END 2024-12-21 11:28 | disposition home or self-care (01) ==
LOC: HO.HMGCX 11:27
PROVIDERS: PCP Internal Medicine; Visit Provider Internal Medicine
DX: R59.0 Localized enlarged lymph nodes (principal)
CPT/HCPCS: 76536

== ENCOUNTER → 2024-12-21 11:28 | Outpatient (BNV) | payer OTHER, SELFPAY | PROVIDERS: PCP Internal Medicine; Visit Provider Radiology Vascular & Interventional Radiology | DX: R59.0 Localized enlarged lymph nodes (principal) | CPT/HCPCS: 76536 ==

== ENCOUNTER 2025-01-10 15:44 | Outpatient (REF) | payer OTHER, SELFPAY ==
--- OUTSIDE RECORDS SUMMARY | 2025-01-10 17:40 | XMS_ITS | Data Portability ---
Author Organization [facility], , [facility] Address [address] [place] [address] Assessment No assessment recorded. Plan of Treatment Reminders Order Date Submit Date Provider Last Modified By Organization Details Last Modified Time Details Appointments None record ed. Lab diegoamy jasen/GC DNA, sda 2012 013 [facility], [address] [place] [address], [id number], 3 18:06:50 basic metabo lic panel 2012 013 [facility], [address] [place] [address], [address]117, 3 04:12:01 CBC 2012 013 [facility], [address] [place] [address], [address], 3 04:12:01 vitami n B12 2011 012 [facility], [address] [place] [address], [address], 3 03:50:09 iron defici ency profil e 2011 012 [facility], [address] [place] [address], [address], 3 03:50:09 CBC 2011 012 [facility], [address] [place] [address], [address], 3 03:50:09 compre hensiv e metabo lic panel 2011 012 [facility], [address] [place], [address], 3 03:50:09 thyroi d stimul claire alcaraz e (TSH) 2011 012 [facility], [address] [place] [address], [address], 3 03:50:09 T4 free 2011 012 [facility], [address] [place] [address], [address], 3 03:50:09 Referral None record ed. Procedures None record ed. Surgeries None record ed. Imaging x-ray, chest 2012 013 [facility] (Imaging), [address], [place], [address], 3 04:12:16 Medication Orders drospi ivet-arturo estradria [...] By Organization Details Last Modified Time 10/05/2012 [id number] vertigo: care instructions SANTHOSH Not available 05/20/2013 03:50:09 03/30/2013 [id number] is taking both b eyaz and spironolactone- does have risk for hyperkalemia.? ? ? if she will stay on spironolactone with derm, likely shoudl change her control pill formulation tfurcolo Not available 03/30/2013 17:51:19 09/07/2013 [id number] headache: care instructions Not available 09/11/2013 09:00:06 [...] related.? ? ? [facility] - if not covered by pharmacy, will have to choose other brand tfurcolo Not available 09/07/2013 17:27:42 Reason for Referral None Reported. Results Created Date Observation Date Name Description Value Unit Range Abnormal Flag Note LastModifiedBy Organization Detail LastModifiedTime 12/20/19 12 12/20/2011 CBC w/dif f WBC 10.2 K/uL 3.4-11 .2 Not Available [facility] (Outpatient) [address] [place] [address], [address], 12/20/2011 13:39:58 12/20/19 12 12/20/2011 CBC w/dif f RBC 5.76 M/uL 3.80-4 .80 high Not Available [facility] (Outpatient) [address] [place] [address], [address], 12/20/2011 13:39:58 12/20/19 12 12/20/2011 CBC w/dif f hemoglobin 12.8 g/dL 12.0-1 5.0 Not Available [facility] (Outpatient) [address] [place] [address], [address], 12/20/2011 13:39:58 12/20/19 12 12/20/2011 CBC w/dif f hematocrit 39.5 % 36.0-4 6.0 Not Available [facility] (Outpatient) [address] [place] [address], [address], 12/20/2011 13:39:58 12/20/19 12 12/20/2011 CBC w/dif f MCV 68.6 fL 79.0-9 8.0 low Not Available [facility] (Outpatient) [address] [place] [address], [address], 12/20/2011 13:39:58 12/20/19 12 12/20/2011 CBC w/dif f MCH 22.2 pg 27.0-3 4.8 low Not Available [facility] (Outpatient) [address] [place] [address], 36339, 12/20/2011 13:39:58 12/20/19 12 12/20/2011 CBC w/dif f MCHC 32.4 g/dL 31.5-3 6.0 Not Available [facility] (Outpatient) [address] [place] [address], 39893, 12/20/2011 13:39:58 12/20/19 12 12/20/2011 CBC w/dif f RDW 13.2 % 10.8-1 4.6 Not Available [facility] (Outpatient) [address] [place] [address], 54317, 12/20/2011 13:39:58 12/20/19 12 12/20/2011 CBC w/dif f MPV NA fL 7.2-10 .5 Not Available [facility] (Outpatient) [address] [place] [address], 20137, 12/20/2011 13:39:58 12/20/19 12 12/20/2011 CBC w/dif f platelet count 185 K/uL 130-40 0 Not Available [facility] (Outpatient) [address] [place] [address], 53072, 12/20/2011 13:39:58 12/20/19 12 12/20/2011 CBC w/dif f neutrophils 79.4 % 45.3-7 7.7 high Not Available [facility] (Outpatient) [address] [place] [address], 08119, 12/20/2011 13:39:58 12/20/19 12 12/20/2011 CBC w/dif f lymphocytes 11.9 % 12.3-3 9.7 low Not Available [facility] (Out[facility]) [address] [place] [address], 70498, 12/20/2011 13:39:58 12/20/19 12 12/20/2011 CBC w/dif f monocytes 7.8 % 4.1-12 .8 Not Available [facility] (Out[facility]) [address] [place] [address], 05924, 12/20/2011 13:39:58 12/20/19 12 12/20/2011 CBC w/dif f eosinophils 0.40 % 0.00-7 .20 Not Available [facility] (Outpatient) [address] [place] [address], 97858, 12/20/2011 13:39:58 12/20/19 12 12/20/2011 CBC w/dif f basophils 0.30 % 0.00-2 .80 Not Available [facility] (Outpatient) [address] [place] [address], 90307, 12/20/2011 13:39:58 12/20/19 12 12/20/2011 CBC w/dif f absolute neutrophil 8.1 K/uL 1.4-7. 7 high Not Available [facility] (Outpatient) [address] [place] [address], 22930, 12/20/2011 13:39:58 12/20/19 12 12/20/2011 CBC w/dif f absolute lymphocyte 1.2 K/uL 0.6-3. 2 Not Available [facility] (Outpatient) [address] [place] [address], 82092, 12/20/2011 13:39:58 12/20/19 12 12/20/2011 CBC w/dif f absolute monocytes 0.8 K/uL 0.1-0. 6 high Not Available [facility] (Outpatient) [address] [place], [address], 12/20/2011 13:39:58 12/20/19 12 12/20/2011 CBC w/dif f absolute eosinophil 0.04 K/uL 0.01-0 .50 Not Available [facility] (Outpatient) [address] [place], [address], 12/20/2011 13:39:58 12/20/19 12 12/20/2011 CBC w/dif f absolute basophils 0.03 K/uL Not Available [facility] (Outpatient) [address] [place] [address], 08297, 12/20/2011 13:39:58 12/20/19 12 12/20/2011 CBC w/dif f immature granulocyte 0.20 % 0.00-0 .50 Not Available [facility] (Outpatient) [address] [place] [address], 47021, 12/20/2011 13:39:58 12/20/19 12 12/20/2011 CBC w/dif f absolute immature granulocyte 0.02 K/uL 0.00-0 .03 Not Available [facility] (Outpatient) [address] [place], [address], 12/20/2011 13:39:58 12/20/19 12 12/20/2011 basic metab olic panel glucose 100 mg/dL 70-99 high Not Available [facility] (Outpatient) [address] [place] [address], [address], 12/20/2011 14:29:29 12/20/19 12 12/20/2011 basic metab olic panel BUN 7 mg/dL 6-19 Not Available [facility] (Outpatient) [address] [place], [address], 12/20/2011 14:29:29 12/20/19 12 12/20/2011 basic metab olic panel creatinine 0.9 mg/dL 0.5-1. 5 Not Available [facility] (Outpatient) [address] [place], [address], 12/20/2011 14:29:29 12/20/19 12 12/20/2011 basic metab olic panel GFR >60 Not Available [facility] (Out[facility]) [address] [place], [address], 12/20/2011 14:29:29 12/20/19 12 12/20/2011 basic metab olic panel sodium 140 mEq/L 133-14 5 Not Available [facility] (Out[facility]) [address] [place], [address], 12/20/2011 14:29:29 12/20/19 12 12/20/2011 basic metab olic panel potassium 3.5 mEq/L 3.3-5. 1 Not Available [facility] (Outpatient) [address] [place], [address], 12/20/2011 14:29:29 12/20/19 12 12/20/2011 basic metab olic panel chloride 102 mEq/L 96-108 Not Available [facility] (Out[facility]) [address] [place], [address], 12/20/2011 14:29:29 12/20/19 12 12/20/2011 basic metab olic panel CO2 28 mEq/L 21-35 Not Available [facility] (Outpatient) [address] [place], [address], 12/20/2011 14:29:29 12/20/19 12 12/20/2011 basic metab olic panel calcium 10.0 mg/dL 8.4-10 .3 Not Available [facility] (Out[facility]) [address] [place], [address], 12/20/2011 14:29:29 12/20/19 12 12/20/2011 basic metab olic panel anion gap 14 mEq/L 10-20 Not Available [facility] (Outpatient) [address] [place], [address], 12/20/2011 14:29:29 12/20/19 12 12/20/2011 C-maryann ctive prote in (CRP) C-reactive protein <0.1 mg/dL 0.0-0. 5 Not Available [facility] (Outpatient) [address] [place], [address], 12/20/2011 14:29:31 12/20/19 12 12/20/2011 hepat ic funct ion panel alkaline phosphatase 104 U/L 39-117 Not Available [facility] (Outpatient) [address] [place], [address], 12/20/2011 14:29:32 12/20/19 12 12/20/2011 hepat ic funct ion panel total bilirubin 0.7 mg/dL 0.0-1. 5 Not Available [facility] (Outpatient) [address] [place], [address], 12/20/2011 14:29:32 12/20/19 12 12/20/2011 hepat ic funct ion panel bilirubin direct <0.2 mg/dL 0.0-0. 3 Not Available [facility] (Outpatient) [address] [place], [address], 12/20/2011 14:29:32 12/20/19 12 12/20/2011 hepat ic funct ion panel bilirubin indirect see below mg/dL not able to calcu late. Not Available [facility] (Outpatient) [address] [place], [address], 12/20/2011 14:29:32 12/20/19 12 12/20/2011 hepat ic funct ion panel AST (SGOT) 14 U/L 0-37 Not Available [facility] (Outpatient) [address] [place], [address], 12/20/2011 14:29:32 12/20/19 12 12/20/2011 hepat ic funct ion panel ALT (SGPT) 9 U/L 0-40 Not Available [facility] (Outpatient) [address] [place], [address], 12/20/2011 14:29:32 12/20/19 12 12/20/2011 hepat ic funct ion panel total protein 7.7 g/dL 6.5-8. 0 Not Available [facility] (Outpatient) [address] [place], [address], 12/20/2011 14:29:32 12/20/19 12 12/20/2011 hepat ic funct ion panel albumin 4.7 g/dL 3.9-4. 8 Not Available [facility] (Outpatient) [address] [place], [address], 12/20/2011 14:29:32 12/20/19 12 12/20/2011 hepat ic funct ion panel globulin 3.0 gm/dL 1.0-4. 8 Not Available [facility] (Outpatient) [address] [place], [address], 12/20/2011 14:29:32 12/20/19 12 12/20/2011 hepat ic funct ion panel A/G ratio 1.6 gm/dL 1.0-4. 8 Not Available [facility] (Outpatient) [address] [place], [address], 12/20/2011 14:29:32 12/20/19 12 12/20/2011 amyla se amylase 65 U/L 28-100 Not Available [facility] (Outpatient) [address] [place], [address], 12/20/2011 14:29:33 12/20/19 12 12/20/2011 lipas e lipase 28 U/L 16-63 Not Available [facility] (Outpatient) [address] [place], [address], 12/20/2011 14:29:34 12/20/19 12 12/20/2011 occul t blood , zacke n occult blood card #1 Negati ve negati ve Not Available [facility] (Outpatient) [address] [place], [address], 12/20/2011 15:03:23 12/20/19 12 12/20/2011 cultu re, stool culture stool No [place] cisco, Shigel la or Campyl obacte r isolat ed Not Available [facility] (Outpatient) [address] [place], [address], 12/23/2011 13:47:47 10/06/20 12 10/06/2012 thyro id stimu latin g hormo ne (TSH) TSH 0.99 uIU/m L 0.50-6 .00 the ameri can colle ge of endoc rinol ogy and ameri can thyro id assoc iatio n recom mend goal TSH value s betwe en 1.0-2 .5 mIU/m L. Not Available [address], [address], 10/06/2012 11:20:27 10/06/20 12 10/06/2012 CBC WBC 4.9 K/? ? ?L 4.0-10 .0 Not Available [address], [address], 10/06/2012 11:32:51 10/06/20 12 10/06/2012 CBC RBC 5.01 M/? ? ?L 3.93-5 .22 Not Available [address], [address], 10/06/2012 11:32:51 10/06/20 12 10/06/2012 CBC HGB 11.1 g/dL 11.2-1 5.7 low Not Available [address], [address], 10/06/2012 11:32:51 10/06/20 12 10/06/2012 CBC HCT 35.4 % 34.1-4 4.9 Not Available [address], [address], 10/06/2012 11:32:51 10/06/20 12 10/06/2012 CBC MCV 70.7 ? ? ?L 79.4-9 4.8 low Not Available [address], [address], 10/06/2012 11:32:51 10/06/20 12 10/06/2012 CBC MCH 22.2 pg 25.6-3 2.2 low Not Available [address], [address], 10/06/2012 11:32:51 10/06/20 12 10/06/2012 CBC MCHC 31.4 g/dL 32.2-3 5.5 low Not Available [address], [address], 10/06/2012 11:32:51 10/06/20 12 10/06/2012 CBC plt 235.0 K/? ? ?L 182.0- 369.0 Not Available [address], [address], 10/06/2012 11:32:51 10/06/20 12 10/06/2012 CBC MPV 13.3 9.4-12 .3 high Not Available [address], [address], 10/06/2012 11:32:51 10/06/20 12 10/06/2012 CBC neut% 57.1 % 34.0-7 1.1 Not Available [address], [address], 10/06/2012 11:32:51 10/06/20 12 10/06/2012 CBC neut# 2.8 1.6-6. 1 Not Available [address], [address], 10/06/2012 11:32:51 10/06/20 12 10/06/2012 CBC lymph % 31.4 % 19.3-5 1.7 Not Available [address], [address], 10/06/2012 11:32:51 10/06/20 12 10/06/2012 CBC lymph # 1.5 K/? ? ?L 1.2-3. 7 Not Available [address], [address], 10/06/2012 11:32:51 10/06/20 12 10/06/2012 CBC mono% 9.0 % 4.7-12 .5 Not Available [address], [address], 10/06/2012 11:32:51 10/06/20 12 10/06/2012 CBC mono# 0.4 0.2-0. 4 high Not Available [address], [address], 10/06/2012 11:32:51 10/06/20 12 10/06/2012 CBC eo% 2.3 % 0.7-5. 8 Not Available [address], [address], 10/06/2012 11:32:51 10/06/20 12 10/06/2012 CBC eo# 0.1 0.0-0. 4 Not Available [address], [address], 10/06/2012 11:32:51 10/06/20 12 10/06/2012 CBC baso% 0.2 % 0.1-1. 2 Not Available [address], [address], 10/06/2012 11:32:51 10/06/20 12 10/06/2012 CBC baso# 0.0 0.0-0. 1 low Not Available [address] [place], [address], 10/06/2012 11:32:51 10/06/20 12 10/06/2012 CBC RDW-CV 13.7 % 11.7-1 4.4 Not Available [address], [address], 10/06/2012 11:32:51 10/06/20 12 10/06/2012 RBC morph ology poik slight Not Available [address], [address], 10/06/2012 11:32:51 10/06/20 12 10/06/2012 RBC morph ology aniso slight Not Available [address], [address], 10/06/2012 11:32:51 10/06/20 12 10/06/2012 RBC morph ology micro modera te Not Available [address], [address], 10/06/2012 11:32:51 10/06/20 12 10/06/2012 RBC morph ology ovalocyte slight Not Available [address], [address], 10/06/2012 11:32:51 10/06/20 12 10/06/2012 compr ehens alondra metab olic panel glucose 76 mg/dL 70-100 Not Available [address], [address], 10/06/2012 11:34:47 10/06/20 12 10/06/2012 compr ehens alondra metab olic panel BUN 12 mg/dL 7-18 Not Available [address], [address], 10/06/2012 11:34:47 10/06/20 12 10/06/2012 compr ehens alondra metab olic panel creatinine 1.0 mg/dL 0.8-1. 3 Not Available [address], [address], 10/06/2012 11:34:47 10/06/20 12 10/06/2012 compr ehens alondra metab olic panel B/C 12.0 ratio Not Available [address], [address], 10/06/2012 11:34:47 10/06/20 12 10/06/2012 compr ehens alondra metab olic panel GFR 76.3 mL/mi n recom orly d GFR by the natio nal kidne y found ation >60 mL/mi n/1.7 3m2 - gely l <60 mL/mi n/1.7 3m2 - chron ic kidne y disea se <15 mL/mi n/1.7 3m2 - kidne y failu re Not Available [address], [address], 10/06/2012 11:34:47 10/06/20 12 10/06/2012 compr ehens alondra metab olic panel GFR - if 87.7 mL/mi n for afric an ameri can patie nts: resul ts multi plied by 1.21 Not Available [address], [address], 10/06/2012 11:34:47 10/06/20 12 10/06/2012 compr ehens alondra metab olic panel sodium 139 mmol/ L 136-14 5 Not Available [address], [address], 10/06/2012 11:34:47 10/06/20 12 10/06/2012 compr ehens alondra metab olic panel potassium 3.8 mmol/ L 3.5-5. 1 Not Available [address], [address], 10/06/2012 11:34:47 10/06/20 12 10/06/2012 compr ehens alondra metab olic panel chloride 104 mmol/ L 96-107 Not Available [address], [address], 10/06/2012 11:34:47 10/06/20 12 10/06/2012 compr ehens alondra metab olic panel _anion gap 5.0 Not Available [address], [address], 10/06/2012 11:34:47 10/06/20 12 10/06/2012 compr ehens alondra metab olic panel CO2 30 mmol/ L 21-32 Not Available [address], 127[address], 10/06/2012 11:34:47 10/06/20 12 10/06/2012 compr ehens alondra metab olic panel calcium 9.0 mg/dL 8.5-10 .3 Not Available [address], [address], 10/06/2012 11:34:47 10/06/20 12 10/06/2012 compr ehens alondra metab olic panel total protein 7.0 g/dL 6.4-8. 2 Not Available [address], [address], 10/06/2012 11:34:47 10/06/20 12 10/06/2012 compr ehens alondra metab olic panel albumin 4.1 g/dL 3.4-5. 0 Not Available [address], [address], 10/06/2012 11:34:47 10/06/20 12 10/06/2012 compr ehens alondra metab olic panel globulin 2.9 g/dL Not Available [address], [address], 10/06/2012 11:34:47 10/06/20 12 10/06/2012 compr ehens alondra metab olic panel A/G 1.4 ratio 0.8-2. 0 Not Available [address], [address], 10/06/2012 11:34:47 10/06/20 12 10/06/2012 compr ehens alondra metab olic panel total bilirubin 0.50 mg/dL 0.00-1 .00 Not Available [address], [address], 10/06/2012 11:34:47 10/06/2010/06/2012 compr ehens alondra metab olic panel AST 15 U/L 15-37 Not Available [address], [address], 10/06/2012 11:34:47 10/06/2010/06/2012 compr ehens alondra metab olic panel ALT 31 U/L 30-65 Not Available [address], [address], 10/06/2012 11:34:47 10/06/2010/06/2012 compr ehens alondra metab olic panel alk. phos. 103 U/L 50-136 Not Available [address], [address], 10/06/2012 11:34:47 10/06/2010/07/2012 iron defic iency profi le iron 68 ug/dL 35-150 Not Available [address], [address], 10/07/2012 08:02:08 10/06/20 12 10/07/2012 iron defic iency profi le T.I.B.C. 356 ug/dL 250-45 0 Not Available [address], [address], 10/07/2012 08:02:08 10/06/20 12 10/07/2012 iron defic iency profi le % saturation 19.1 % Not Available [address], [address], 10/07/2012 08:02:08 10/06/20 12 10/07/2012 T4 free free T4 0.91 NG/dL 0.75-1 .54 Not Available [address], [address], 10/07/2012 09:15:15 10/06/20 12 10/12/2012 vitam in B12 vitamin B12 448 pg/mL 230-10 50 Not Available [address], [address], 10/12/2012 11:23:33 03/31/20 13 03/31/2013 basic metab olic panel glucose 96 mg/dL 70-100 Not Available [address], [address], 03/31/2013 10:35:38 03/31/20 13 03/31/2013 basic metab olic panel BUN 10 mg/dL 7-18 Not Available [address], [address], 03/31/2013 10:35:38 03/31/20 13 03/31/2013 basic metab olic panel creatinine 1.0 mg/dL 0.8-1. 3 Not Available [address], [address], 03/31/2013 10:35:38 03/31/20 13 03/31/2013 basic metab olic panel B/C 10.0 ratio Not Available [address], [address], 03/31/2013 10:35:38 03/31/20 13 03/31/2013 basic metab olic panel GFR 76.3 mL/mi n recom orly d GFR by the natio nal kidne y found ation >60 mL/mi n/1.7 3m2 - gely l <60 mL/mi n/1.7 3m2 - chron ic kidne y disea se <15 mL/mi n/1.7 3m2 - kidne y failu re Not Available [address], [address], 03/31/2013 10:35:38 03/31/20 13 03/31/2013 basic metab olic panel GFR - if 87.7 mL/mi n for afric an ameri can patie nts: resul ts multi plied by 1.21 Not Available [address], [address]648, 03/31/2013 10:35:38 03/31/20 13 03/31/2013 basic metab olic panel sodium 139 mmol/ L 136-14 5 Not Available [address], [address], 03/31/2013 10:35:38 03/31/20 13 03/31/2013 basic metab olic panel potassium 3.8 mmol/ L 3.5-5. 1 Not Available [address], [address], 03/31/2013 10:35:38 03/31/20 13 03/31/2013 basic metab olic panel chloride 102 mmol/ L 96-107 Not Available [address], 12486, 03/31/2013 10:35:38 03/31/20 13 03/31/2013 basic metab olic panel _anion gap 9.0 Not Available [address], [address], 03/31/2013 10:35:38 03/31/20 13 03/31/2013 basic metab olic panel CO2 28 mmol/ L 21-32 Not Available [address], [address]60, 03/31/2013 10:35:38 03/31/20 13 03/31/2013 basic metab olic panel calcium 8.4 mg/dL 8.5-10 .3 low Not Available [address], [address], 03/31/2013 10:35:38 03/31/20 13 03/31/2013 CBC WBC 8.3 K/? ? ?L 4.0-10 .0 Not Available [address], [address], 03/31/2013 14:36:50 03/31/20 13 03/31/2013 CBC RBC 4.89 M/? ? ?L 3.93-5 .22 Not Available [address], [address], 03/31/2013 14:36:50 03/31/20 13 03/31/2013 CBC HGB 11.0 g/dL 11.2-1 5.7 low Not Available [address], [address], 03/31/2013 14:36:50 03/31/20 13 03/31/2013 CBC HCT 34.5 % 34.1-4 4.9 Not Available [address], [address], 03/31/2013 14:36:50 03/31/20 13 03/31/2013 CBC MCV 70.6 ? ? ?L 79.4-9 4.8 low Not Available [address], [address], 03/31/2013 14:36:50 03/31/20 13 03/31/2013 CBC MCH 22.5 pg 25.6-3 2.2 low Not Available [address], [address], 03/31/2013 14:36:50 03/31/20 13 03/31/2013 CBC MCHC 31.9 g/dL 32.2-3 5.5 low Not Available [address], [address], 03/31/2013 14:36:50 03/31/20 13 03/31/2013 CBC plt 217.0 K/? ? ?L 182.0- 369.0 Not Available [address], [address], 03/31/2013 14:36:50 03/31/20 13 03/31/2013 CBC MPV 12.3 9.4-12 .3 Not Available [address], [address], 03/31/2013 14:36:50 03/31/20 13 03/31/2013 CBC neut% 72.2 % 34.0-7 1.1 high Not Available [address], [address], 03/31/2013 14:36:50 03/31/20 13 03/31/2013 CBC neut# 6.0 1.6-6. 1 Not Available [address], [address], 03/31/2013 14:36:50 03/31/20 13 03/31/2013 CBC lymph % 17.6 % 19.3-5 1.7 low Not Available [address], [address], 03/31/2013 14:36:50 03/31/20 13 03/31/2013 CBC lymph # 1.5 K/? ? ?L 1.2-3. 7 Not Available [address], [address], 03/31/2013 14:36:50 03/31/20 13 03/31/2013 CBC mono% 8.9 % 4.7-12 .5 Not Available [address], [address], 03/31/2013 14:36:50 03/31/20 13 03/31/2013 CBC mono# 0.7 0.2-0. 4 high Not Available [address], [address], 03/31/2013 14:36:50 03/31/20 13 03/31/2013 CBC eo% 1.1 % 0.7-5. 8 Not Available [address], [address], 03/31/2013 14:36:50 03/31/20 13 03/31/2013 CBC eo# 0.1 0.0-0. 4 Not Available [address], [address], 03/31/2013 14:36:50 03/31/20 13 03/31/2013 CBC baso% 0.2 % 0.1-1. 2 Not Available [address], [address], 03/31/2013 14:36:50 03/31/20 13 03/31/2013 CBC baso# 0.0 0.0-0. 1 low Not Available [address], [address], 03/31/2013 14:36:50 03/31/20 13 03/31/2013 CBC RDW-CV 14.0 % 11.7-1 4.4 Not Available [address], [address], 03/31/2013 14:36:50 03/31/20 13 03/31/2013 RBC morph ology hypochrom mild lplt= large platl ets appea r on smear Not Available [address], [address], 03/31/2013 14:55:28 03/31/20 13 03/31/2013 RBC morph ology ovalocyte mild Not Available [address], [address], 03/31/2013 14:55:28 09/07/20 13 09/10/2013 chlam ydia/ GC DNA, sda N. gonorrhoeae Neg negati ve Not Available [address], [address], 09/10/2013 18:06:50 09/07/20 13 09/10/2013 chlam ydia/ GC DNA, sda C. trachomatis Neg negati ve Not Available [address], [address], 09/10/2013 18:06:50 03/30/20 13 03/30/2013 x-ray , [...] Kacy Mayfield luz marina: Tristin Turner MD [facility] (Imaging) [address] , [place], [address], 05/20/2013 04:11:48 Result Notes None recorded. Problems Name Problem SNOMED Code Status Onset Date Resolution Date Notes Provider Name and Address Organization Details Recorded Time Anxiety 54855513 Active Na Furcolo D.O. [address] [place] [address], [id number] , [facility] 3 17:28:03 Acne 88528869 Active Na Furcolo D.O. [address] [place] [address], [id number] , [facility] 3 17:28:03 Injury of finger 31122124 Completed 200108/03/2011 Not Available [facility] 3 03:04:39 Joint pain in ankle and foot Completed 200508/03/2011 Not Available [facility] 3 03:04:39 Abdominal pain 19481589 Completed 200608/03/2011 Not Available [facility] 3 03:04:39 Precordial pain [id number] Completed 08/03/2011 Not Available [facility] 3 03:04:39 Knee pain Completed 200508/03/2011 Not Available [facility] 3 03:04:39 Injury of knee 770698871 Completed 200408/03/2011 Not Available [facility] 3 03:04:39 Sprain of superior tibiofibul ar ligament 353695539 Completed 200708/03/2011 Not Available [facility] 3 03:04:39 Anemia 523864536 Active 2003 Not Available [facility] 3 03:04:39 Astigmatis m 25309920 Completed 200708/03/2011 Not Available [facility] 3 03:04:39 Backache 377537811 Completed 200708/03/2011 Not Available [facility] 3 03:04:39 Pain in wrist 45492643 Completed 200108/03/2011 Not Available [facility] 3 03:04:39 Pain in limb 20313786 Completed 200708/03/2011 Not Available [facility] 3 03:04:39 Sprain of ankle 23452294 Completed 200508/03/2011 Not Available [facility] 3 03:04:39 Problem Notes None recorded. Procedures Surgical History Date Name Laterality Status Provider Name and Address Organization Details Recorded Time 1 Plantar Wart completed Maral Pelayo MD [address] [place] [address], [phone], [facility] 07/01/2011 12:34:29 Imaging Results Imaging Date Name Status LastModified by Organiz [facility] Details LastModified Time 03/30/2013 x-ray, chest completed [facility] (Imaging) [address], [place], [address], 05/20/2013 04:11:48 Procedure Notes None recorded. Medical [...] Details Last Updated DateTime 2 165.1 cm 74600.4 9203 g 19.8 kg/m2 78 /min 102 mm[Hg] 70 mm[Hg] [facility] 2 13:55:22 Date Recorded Body height Body weight Body mass index (BMI) Heart rate Oxygen saturation Oxygen saturation in Arterial blood by Pulse oximetry Systolic blood pressure Diastolic blood pressure Provider Name and Address Organization Details Last Updated DateTime 2 165.1 cm 10008.6 7677 g 20.1 kg/m2 72 /min 100 % 100 % 98 mm[Hg] 62 mm[Hg] [facility] 2 14:56:37 Date Recorded Body height Body weight Body mass index (BMI) Heart rate Systolic blood pressure Diastolic blood pressure Provider Name and Address Organization Details Last Updated DateTime 3 165.1 cm 09549.5 37730 g 19.2 kg/m2 80 /min 94 mm[Hg] 74 mm[Hg] Judie Fine [facility] 3 16:25:01 Date Recorded Body height Body weight Body mass index (BMI) Heart rate Systolic blood pressure Diastolic blood pressure Provider Name and Address Organization Details Last Updated DateTime 3 165.1 cm 70261.0 04685 g 18.9 kg/m2 91 /min 102 mm[Hg] 85 mm[Hg] Padmini Vallejo [facility] 3 13:49:48 Date Recorded Body height Body weight Body mass index (BMI) Heart rate Systolic blood pressure Diastolic blood pressure Provider Name and Address Organization Details Last Updated DateTime 3 165.1 cm 68103.1 2255 g 19.1 kg/m2 66 /min 98 mm[Hg] 64 mm[Hg] Judie Fine LPN [facility] 3 16:51:14 Social History Question Answer Notes LastModified by Organizat ion Details LastModified Time Tobacco Smoking Status Never Smoker Not Available [facility] 09/10/2011 04:57:24 Do You Have An [...] not available 09/10/2011 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 [employer] Information not available 09/07/2013 How Many Days [...] adolescent or pediatric 2 completed CODY Negron, [facility] 04/25/2014 15:21:20 Td(adult) unspecified formulation 1 completed CODY Negron, [facility] 04/25/2014 15:21:20 DTP 9 completed Ivette Hoffmann LPN null, [facility] 04/25/2014 15:21:20 MMR 5 completed Ivette Hoffmann LPN null, [facility] 04/25/2014 15:21:20 Tdap 0 completed Ivette Hoffmann LPN null, [facility] 04/25/2014 15:21:20 meningococcal ACWY, unspecified formulation 7 completed Ivette Hoffmann LPN null, [facility] 04/25/2014 15:21:20 HPV, unspecified formulation 0 completed Ivette Hoffmann LPN null, [facility] 04/25/2014 15:21:20 MMR 0 completed Ivette Hoffmann LPN null, [facility] 04/25/2014 15:21:20 OPV 9 completed Ivette Hoffmann LPN null, [facility] 04/25/2014 15:21:20 DTP 5 completed Ivette Hoffmann LPN null, [facility] 04/25/2014 15:21:20 DTP 9 completed Ivette Hoffmann LPN null, [facility] 04/25/2014 15:21:20 Hep B, adolescent or pediatric 0 completed Ivette Hoffmann LPN null, [facility] 04/25/2014 15:21:20 OPV 9 completed Ivette Hoffmann LPN null, [facility] 04/25/2014 15:21:20 OPV 0 completed Ivette Hoffmann LPN null, [facility] 04/25/2014 15:21:20 OPV 5 completed Ivette Hoffmann LPN null, [facility] 04/25/2014 15:21:20 HPV, unspecified formulation 8 completed Ivette Hoffmann LPN null, [facility] 04/25/2014 15:21:20 Hib (HbOC) 0 completed Ivette Hoffmann LPN null, [facility] 04/25/2014 15:21:20 DTP 9 completed Ivette Hoffmann LPN null, [facility] 04/25/2014 15:21:20 HPV, unspecified formulation 7 completed Ivette Hoffmann LPN null, [facility] 04/25/2014 15:21:20 Hep B, adolescent or pediatric 1 completed Ivette Hoffmann LPN null, [facility] 04/25/2014 15:21:20 DTP 0 completed Ivette Hoffmann LPN null, [facility] 04/25/2014 15:21:20 Past Encounters Encounter ID Performer Location Encounter Start Date Encounter Closed Date Diagnosis/Indication Diagnosis SNOMED-CT Code Diagnosis ICD10 Code Diagnosis Note [id number] Radiology , [address] [address] 02/27/2002 14:00:00 11/14/2008 02:02:29 [id number] Radiology , [address] [address] 04/21/2002 16:08:36 11/14/2008 02:02:29 [id number] LAB - [address] [address] 04/11/2004 11:28:12 04/11/2004 11:28:30 [id number] [place] [facility] [place] [address] 08/06/2004 11:43:41 08/06/2004 11:57:00 [id number] LAB - [facility] [place] [address] 04/09/2005 11:51:39 04/09/2005 11:52:02 [id number] Radiology , [facility] [place] [address] 07/09/2005 08:49:27 07/09/2005 08:50:51 [id number] Radiology , [facility] [place] [address] 07/09/2005 00:00:00 11/14/2008 02:02:29 [id number] LAB - [facility] [place] [address] 07/09/2005 09:27:34 07/09/2005 09:28:02 [id number] Physical Therapy, [facility] [place] [address] 01/12/2006 08:09:19 01/12/2006 09:31:08 [id number] LAB - [facility] [place] [address] 03/30/2006 12:12:37 03/30/2006 12:12:46 [id number] Radiology , [facility] [place] [address] 07/20/2006 09:34:07 07/20/2006 14:13:24 [id number] Radiology , [facility] [place] [address] 07/20/2006 00:00:00 11/14/2008 02:02:29 [id number] LAB - [facility] [place] [address] 05/04/2007 15:41:32 05/04/2007 15:41:47 [id number] Radiology , [facility] [place] [place] [address] 10/26/2007 10:33:03 10/26/2007 11:01:53 [id number] Radiology , [facility] [place] [address] 10/26/2007 00:00:00 11/14/2008 02:02:29 [id number] Eye Care, [facility] [place] [address] 10/27/2007 10:23:03 10/27/2007 15:33:08 [id number] LAB - [facility] [place] [address] 10/26/2007 11:34:23 10/26/2007 11:34:29 [id number] Radiology , [facility] [place] [address] 03/27/2008 10:23:03 03/27/2008 13:13:03 [id number] Radiology , [facility] [place] [address] [place] [address] 03/27/2008 00:00:00 11/14/2008 02:02:29 [id number] Physical Therapy, [facility] [place] [address] [place] [address] 04/05/2008 07:56:47 04/05/2008 07:57:12 [id number] Radiology , [facility] [place] [address] 06/11/2010 15:01:18 06/13/2010 10:06:[id number] [place] [address] 07/01/2011 11:25:11 07/01/2011 12:34:[id number] [place] [address] 08/03/2011 08:34:08 08/03/2011 09:21:[id number] [place] [address] 11/04/2011 11:07:47 11/04/2011 11:51:[id number]OM [address] [place] [address] 12/22/2011 13:48:05 12/22/2011 14:11:[id number] [place] [address] 10/05/2012 14:47:48 10/05/2012 15:12:37 [id number] Na SANTOS [address] [place] [address] 03/30/2013 15:52:00 03/30/2013 16:53:38 [id number] CODY Heard [address] [place] [address] 07/10/2013 13:37:51 07/10/2013 14:55:05 Panic attack [id number] Breathing exercises, avoiding caffeine and stimulatin g meds like sudafed or otc cold products. We have opted to trial a low dose of citalopram at hs. She will trial lorazepam at a low dose given her petite size. Can be used preventati vely and prn for anxiety Gastritis [id number] Possib ly related to anxiety and stress. We discussed culprit foods to avoid and proper med dosing. [id number] Na SANTOS, [facility] [place] [address] [place] [address] 09/07/2013 16:08:33 09/08/2013 08:10:25 Examination for population survey [id number] Adult heal th examination [id number] see Risk Assessment and Lifestyle Change Counseling section above Counseling [id number] Acne 29080895 on spironolac tone and beyaz OCP Headache 28582639 mild headache, resolved, no aura assocaited , no history of migraine. Anxiety 47313759 mostly improved, weaning off citalopram . uses lorazepam sparingly Health Concerns Section Related Observation LastModified by Organization Detai ls LastModified Time None Recorded Concern Status LastModified by Organization Details LastModified Time None Recorded Advance Directives Directive N: Payers Encounter Date Sequence Insurance Name Policy Number Policy Desai Covered Member ID Desai Member ID Guarantor Name 12/22/2011 1 [facility] [id number] Erin G Haqq [id number] Erin G Haqq 10/05/2012 1 [facility] [id number] Erin G Haqq [id number] Erin G Haqq 03/30/2013 1 [facility] [id number] Erin G Haqq [id number] Erin G Haqq 07/10/2013 1 [facility]) [id number] Erin G Haqq [id number] Erin G Haqq 09/07/2013 1 [facility]) [id number] Erin G Haqq [id number] Erin G Haqq Notes Date Note Type Note Provider Name and Address Organization Details Recorded Time 12/22/2011 text/html Erin is here f or follow-up on [facility] ER visit on 12/20/10. Pt had presented with 1 week of fatigue, anorexia, some nausea, dizziness. Occasional abdominal cramping but resolving Recent travel to [place] where she did drink water. No fever. No diarrhea. Likely viral etiology. Today pt states she is feeling better with return of appetite. Fatigue, weakness improved today. Some lightheadedness. Pushing fluids. ? ameoba parasite. Calli Mon NP [address] [place], [address], [facility] 12/22/2011 14:13:53 10/05/2012 text/html Erin is here [...] patience. very thirsty. Calli Mon NP [address] [place], [address], [facility] 10/05/2012 15:14:28 03/30/2013 text/html had sensation of [...] with her acne. Na Han D.O. [address] [place], [address], [facility] 03/30/2013 17:51:31 07/10/2013 text/html Pt reports that [...] also struggling with anxiety. Barrington Oliveira MD [address] [place] [address], [phone], [facility] 07/23/2013 22:44:03 OBGyn Episode No OBEpisode recorded.
== END 2025-01-10 15:45 | disposition home or self-care (01) ==
LOC: HO.SH 15:44
PROVIDERS: Visit Provider Internal Medicine
DX: Z01.118 Encounter for examination of ears and hearing with other abnormal findings (principal); H93.293 Other abnormal auditory perceptions, bilateral
CPT/HCPCS: 92557; 92567

== ENCOUNTER 2025-04-26 10:37 | Outpatient (AMB) | payer OTHER, SELFPAY ==
--- NOTE | 2025-04-26 10:43 | A.OFFPC_ITS ---
Vital Signs 04/26/25 10:44 Height 5 ft 6 in Weight 127 lb BMI 20.5 BP 94/68 Blood Pressure Location Rt brachial Position Sitting Pulse 58 Pulse Source Pulse Oximeter Temp 98.1 F Temp Source Oral Pulse Oximetry (%) 100 Oxygen Delivery Method Room Air Intake Visit Reasons: legs patches cold tinggly Intake Note: Pt is here today for a sick visit. Pt c/o L lower leg numbness and cold feeling in her L foot. Allergies No Known Allergies (No Known Allergies*) Allergy (Verified 12/04/24 12:32) Medication List - Last Reconciled 04/26/25 by Erin Box MD meloxicam 15 mg PO DAILY spironolactone 100 mg PO DAILY Tobacco use date assessed: 04/26/25 Dental Screening Dental Screen Date: 04/26/25 Did you have a dental visit in the last 12 months?: Yes Did you have a dental problem in the last 6 months where you did not have access to dental care?: No Was dental information given to patient?: Patient has dentist HPI legs patches cold tinggly HPI Details Patient presents complaining of initially pain below left knee worse when kneeling down lasted for about a week followed by the feeling of the numbness and coldness on the lateral aspect of left caceres. Patient denies any weakness or pain radiating from the lower back or buttock to the left leg, change in the bowel or bladder function. Patient has been exercising intensively running and lifting weights daily. [facility] Medical History Palpitations Anemia Dysuria Fatigue Anxiety Urinary urgency Right shoulder pain Cervicalgia depression Mild intermittent asthma without complication Surgical History H/O adenoidectomy Family History Father Diabetes mellitus Mother No problems noted. 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 Current occupational exposures/hazards: No Cognitive needs: No Hearing needs: No Vision needs: Yes Questionnaire Thrive Questionnaire Date Thrive assessed: 12/04/24 I am a: Patient What is your living situation today?: I have a steady place to live Within the past 12 months, did the food you bought not last and you didn't have the money to get more?: I choose not to answer this question Within the past 12 months, did you worry whether your food would run out before you got money to buy more?: I choose not to answer this question Do you have trouble paying for medicines?: I choose not to answer this question Do you have trouble getting transportation to medical appointments?: I choose not to answer this question Do you have trouble paying your heating and electricity bill?: I choose not to answer this question Do you have trouble taking care of your child, family member or friend?: I choose not to answer this question Do you have trouble with day-to-day activities such as bathing, preparing meals, shopping, managing finances, etc.?: I choose not to answer this question Are you currently unemployed and looking for a job?: I choose not to answer this question Are you interested in more education?: I choose not to answer this question Please select the resources that you would like help with: None Currently or been in a relationship where the following occur: I choose not to answer THRIVE Score: 0 ROSHAN-7 AMB Questionnaire ROSHAN-7 Date ROSHAN - 7 assessed: 12/04/24 Source: Developed by Drs. Barrington López, Juana Morgan, Joey Almendarez and colleagues, with an educational laurie from [employer]. Review of Systems Const All systems reviewed & are unremarkable except as noted in HPI and below ENT Reports no additional complaints Card Reports no additional complaints Resp Reports no additional complaints GI Reports no additional complaints Reports no additional complaints Physical exam (Primary Care) Vital Signs: Last Vital Signs Temp 98.1 F 04/26/25 10:44 Pulse 58 04/26/25 10:44 BP 94/68 04/26/25 10:44 Pulse Ox 100 04/26/25 10:44 Oxygen Delivery Method Room Air 04/26/25 10:44 BMI result Body Mass Index 20.5 Tobacco/Smoking Status: Tobacco use Status Tobacco use date assessed 04/26/25 04/26/25 10:50 Patient Tobacco Use Status Never used Tobacco 04/26/25 11:41 e-Cigarette/Vaping Use Never Used 04/26/25 11:41 Thrive Assessment: Date of Thrive Assessment Date Thrive assessed 12/04/24 04/26/25 10:50 Currently or been in a relationship where the following occur: I choose not to answer Const General: no acute distress HENMT Head: Yes normal to inspection Mouth: Normal oral and palatal mucosa present Eyes General: appearance normal, both eyes and all related structures Neck Neck: Yes no lymphadenopathy and Yes supple Resp Effort & Inspection: normal respiratory effort Auscultation: clear to auscultation bilaterally Cardio Rhythm: regular rhythm Heart sounds: S1 normal heart sound present and S2 normal heart sound present Back/Spine/Pelvis Thoracic/Lumbar Spine: thoracic and lumbar spine normal to inspection and straight leg raise negative bilaterally Pelvis: no pain with anterior-posterior compression Neuro Gait exam (Neuro): Normal gait present Motor exam (neuro): 5/5 motor strength present throughout Sensory Exam: double simultaneous stimulation for sensation normal Extrem Other: Left knee joint: full range of motion, no soft tissue swelling erythema or a slightly decreased sensation to the touch in the lateral aspect below left knee, heel/toe walk intact bilaterally. deep tendon reflexes 2+ bilaterally Coding Level of Care Code Est Pt Level 3 (57633) Diagnoses Patellar tendinitis of left knee M76.52 Assessment & Plan Assessment & Plan (1) Patellar tendinitis of left knee: Code(s): M76.52 - Patellar tendinitis, left knee Category: Medical Plan: Meloxicam for 1 week as prescribed. Patient was advised to modify her physical activity to avoid strain on the knee Medications: New meloxicam 15 mg PO DAILY 7 tabs 0RF
[2025-04-26 10:44] VITALS: BP 94/68; PULSE 58; TEMP 36.7; O2SAT 100; BMI 20.5
--- OUTSIDE RECORDS SUMMARY | 2025-04-26 11:27 | XMS_ITS | Clinical Summary ---
Author Organization [facility] Address [address] [place] [address] Care Team Providers Care Camp Tender Name Role Phone Erin Box MD Primary Care Provider [phone] Allergies No known active allergies Medications triamcinolone (NASACORT AQ) 55 MCG/ACT Aerosol nasal sprayIndication s:Eustachian tube dysfunction, bilateral 2 sprays into each nostril daily. 1 each 3 02/05/2025 Active cetirizine (ZyrTEC) 10 MG tablet TAKE 1 TABLET BY MOUTH DAILY NEEDED FOR ALLERGY SYMPTOMS 12/04/2024 Active fluticasone (FloNASE) 50 mcg/spray nasal spray 1 spray into each nostril daily. 05/30/2024 05/30/20 25 Active spironolactone (ALDACTONE) 50 MG tablet Take 1 tablet by mouth daily. 05/10/2024 Active Active Problems Problem Noted Date Diagnosed Date Acne 02/05/2025 Anxiety 02/05/2025 Anxiety 02/05/2025 Overview (02/05/2025): Hx of panic attacks, but no issues since after 2nd child. History of depression, currently preg nant 02/05/2025 History of hemorrhage, currently preg nant 02/05/2025 History of varicella as a child 02/05/2025 Perioral dermatitis 02/05/2025 Precordial pain 02/05/2025 02/05/2025 Sprain of superior tibiofibular ligament 008 Pain in limb 03/27/2008 Astigmatism 10/27/2007 Backache 10/26/2007 Abdominal pain 05/04/2007 Sprain of ankle 07/20/2006 Injury of knee 07/09/2005 Anemia 04/11/2004 Injury of finger 04/21/2002 Pain in wrist 02/27/2002 Encounters Date Type Department Care Team Description 02/05/2025 9:00 AM EDT Clinical Support [facility] [address] [facility] [place] [address] Trent Simpson MD Eustachian tube dysfunction, bilateral (Primary Dx); Otalgia of both ears from Last 3 Months Immunizations Immunization Administration Dates Next Due DTP 03/16/1995, 0,05/24/1989,1988,1988 HPV, Unspecified 04/24/2010,01/09/2008, 7 Hep B, Adolescent or Pediatric 06/16/2002,2000,07/16/2000 Hib (HbOC) 05/19/1990 Influenza Virus Trivalent Sp lit Vaccine (MDV) IM 08/25/2022,07/17/2020 MMR 03/16/1995,02/08/1990 OPV 03/16/1995, 0,03/05/1989,1988 Td, Unspecified 12/17/2000 Tdap 06/22/2022,04/24/2010 Social History Tobacco Use Types Packs/Day Years Used Date Smoking Tobacco: Never Assessed Comments Unknown Sex and Gender Information Value Date Recorded Sex Assigned at Female 01/29/2025 6:44 AM EDT Legal Sex Female 11:26 AM EDT Gender Identity Not on file Sexual Orientation Not on file Plan of Treatment Health Maintenance Due Date Last Done Comments Hepatitis C Virus Screening 1988 HIV Screening 2001 Pap Smear (Ages 21-65) 2009 COVID-19 Vaccine ( season) 2024 Influenza Vaccine 05/25/2025 08/25/2022, 07/17/2020 DTaP/Tdap/Td Vaccines (8 - Td or Tdap) 06/22/2032 06/22/2022, 04/24/2010, 12/17/2000, Additional history exists Hepatitis B Vaccines Completed 06/16/2002, 12/17/2000, 07/16/2000 HPV Vaccines Completed 04/24/2010, 12/23, 05/04/2007 Pneumococcal Vaccine: Pediatric (0-5 Years) and At-Risk Patients (6 to 49 Years) Aged Out No longer eligible based on patient's age to complete this topic Insurance [facility] HMO Care Teams Camp Tender Relationship Specialty Start Date End Date Erin Box MD [address], [place] [phone] PCP - General 02/05/25
--- OUTSIDE RECORDS SUMMARY | 2025-04-26 11:27 | XMS_ITS ---
Author Name [facility] Organization Unknown History of Medication Use Medication Directions Dispensed Refills Start Date End Date Stat us triamcinolone (NASACORT AQ) 55 MCG/ACT Aerosol nasal spray 2 sprays into each nostril daily. 02/05/2025 active cetirizine (ZyrTEC) 10 MG tablet TAKE 1 TABLET BY MOUTH DAILY NEEDED FOR ALLERGY SYMPTOMS 12/04/2024 active fluticasone (FloNASE) 50 mcg/spray nasal spray 1 spray into each nostril daily. 05/30/2024 active spironolactone (ALDACTONE) 50 MG tablet Take 1 tablet by mouth daily. 05/10/2024 active Problems Problem Status Onset Date Problem Type Date of Resoluti on Source Perioral dermatitis active 2025-02-05 ProblemAct [facility] Backache active 2007-10-26 ProblemAct [facility] Pain in wrist active 2002-02-27 ProblemAct [facility] T Abdominal pain active 2007-05-[address] History of hemorrhage, currently active 2025-02-05 ProblemAct [facility] Injury of finger active 2002-04-21 ProblemAct [facility] Pain in limb active 2008-03-27 ProblemAct [facility] Acne active 2025-02-05 ProblemAct [facility] active 2025-02-05 ProblemAct [facility] History of varicella as a child active 2025-02-05 ProblemAct [facility] Injury of knee active 2005-07-[address] Anxiety active 2025-02-05 ProblemAct [facility] Eustachian tube dysfunction, bilateral active EncounterDiagnosisAct [facility] Anemia active 2004-04-11 ProblemAct [facility] History of depression, currently active 2025-02-05 ProblemAct [facility] Sprain of ankle active 2006-07-20 ProblemAct [facility] Otalgia of both ears active EncounterDiagnosisA ct [facility] Precordial pain active 2025-02-05 ProblemAct [facility] Astigmatism active 2007-10-27 ProblemAct [facility] Sprain of superior tibiofibular ligament active 2008-04-05 ProblemAct [facility] Immunizations Vaccine Date Source Lot Number Status Influenza Virus Trivalent Sp lit Vaccine (MDV) IM 08/25/2022 [facility] [id number] completed Tdap 06/22/2022 [facility] [id number] completed Influenza Virus Trivalent Sp lit Vaccine (MDV) IM 07/17/2020 [facility] [id number] completed HPV, Unspecified 04/24/2010 [facility] complete d Tdap 04/24/2010 [facility] completed HPV, Unspecified 01/09/2008 [facility] complete d HPV, Unspecified 05/04/2007 [facility] complete d Hep B, Adolescent or Pediatric 06/16/2002 [facility] completed Hep B, Adolescent or Pediatric 12/17/2000 [facility] completed Td, Unspecified 12/17/2000 [facility] completed Hep B, Adolescent or Pediatric 07/16/2000 [facility] completed DTP 03/16/1995 [facility] completed MMR 03/16/1995 [facility] completed OPV 03/16/1995 [facility] completed DTP 05/19/1990 [facility] completed Hib (HbOC) 05/19/1990 [facility] completed OPV 05/19/1990 [facility] completed MMR 02/08/1990 [facility] completed DTP 05/24/1989 [facility] completed DTP 03/05/1989 [facility] completed OPV 03/05/1989 [facility] completed DTP 1988 [facility] completed OPV 1988 [facility] completed Encounters Encounter Type Encounter Reason Primary Diagnosis Location Date Ambulatory [facility] 02/05/2025 Care Team Organization Name Specialty Phone Email Start Date End [facility] te [place] [facility] 02/08/2025 03/10/2025 [facility] 01/22/2025
--- OUTSIDE RECORDS SUMMARY | 2025-04-26 11:28 | XMS_ITS | Data Portability ---
Author Organization [facility], , [facility] Address [address] [place] [address] Assessment No assessment recorded. Plan of Treatment Reminders Order Date Submit Date Provider Last Modified By Organization Details Last Modified Time Details Appointments None record ed. Lab lesa aggarwal/GC DNA, sda 2012 013 [facility], [address] [place] [address], [id number], 3 18:06:50 basic metabo lic panel 2012 013 [facility], [address] [place] [address], [id number], 3 04:12:01 CBC 2012 013 [facility], [address] [place] [address], [address], 3 04:12:01 vitami n B12 2011 012 [facility], [address] [place] [address], [id number], 3 03:50:09 iron defici ency profil e 2011 012 [facility], [address] [place] [address], [id number], 3 03:50:09 CBC 2011 012 [facility], [address] [place] [address], [address], 3 03:50:09 compre hensiv e metabo lic panel 2011 012 [facility], [address] [place] [address], 8[address], 3 03:50:09 thyroi d stimul attrinidad alcaraz e (TSH) 2011 012 [facility], [address] [place] [address], 36[address], 3 03:50:09 T4 free 2011 012 [facility], [address] [place] [address], [address], 3 03:50:09 Referral None record ed. Procedures None record ed. Surgeries None record ed. Imaging x-ray, chest 2012 013 [facility]), [address], [place], [address], 3 04:12:16 Medication Orders drospi ivet-e. estrad -l.mef ol 3 mg-0.0 2 mg-0.4 51 [...] By Organization Details Last Modified Time 10/05/2012 [id number] vertigo: care instructions [facility] Not available 05/20/2013 03:50:09 03/30/2013 [id number] is taking both b eyaz and spironolactone- does have risk for hyperkalemia. if she will stay on spironolactone with derm, likely shoudl change her control pill formulation tfurcolo Not available 03/30/2013 17:51:19 09/07/2013 [id number] headache: care instructions Not available 09/11/2013 09:00:06 acne: care instructions Not available 09/11/2013 09:00:06 anxiety disorder : care instructions Not available 09/11/2013 09:00:06 Well Visit, Ages 18 to 65: Care Instructions Not available 09/11/2013 09:00:06 My Health To Do List discussed contraindicatiosn of OCPs- no h/o DVT or smoking. no h/o migraines or migraines with aura. a few isolated events of dizziness or visual change not associated with migraine- mostly anxiety related. received beyaz samples from [facility] - if not covered by pharmacy, will have to choose other brand tfurcolo Not available 09/07/2013 17:27:42 Reason for Referral None Reported. Results Created Date Observation Date Name Description Value Unit Range Abnormal Flag Note LastModifiedBy Organization Detail LastModifiedTime 12/20/19 12 12/20/2011 CBC w/dif f WBC 10.2 K/uL 3.4-11 .2 Not Available [facility] (Outpatient) [address] [place] [address], [address], 12/20/2011 13:39:58 12/20/19 12 12/20/2011 CBC w/dif f RBC 5.76 M/uL 3.80-4 .80 high Not Available [facility] (Outpatient) [address] [place] [address], 10434, 12/20/2011 13:39:58 12/20/19 12 12/20/2011 CBC w/dif f hemoglobin 12.8 g/dL 12.0-1 5.0 Not Available [facility] (Outpatient) [address] [place] [address], 46[address], 12/20/2011 13:39:58 12/20/19 12 12/20/2011 CBC w/dif f hematocrit 39.5 % 36.0-4 6.0 Not Available [facility] (Outpatient) [address] [place] [address], 79334, 12/20/2011 13:39:58 12/20/19 12 12/20/2011 CBC w/dif f MCV 68.6 fL 79.0-9 8.0 low Not Available [facility] (Outpatient) [address] [place] [address], 45[address], 12/20/2011 13:39:58 12/20/19 12 12/20/2011 CBC w/dif f MCH 22.2 pg 27.0-3 4.8 low Not Available [facility] (Outpatient) [address] [place] [address], 78260, 12/20/2011 13:39:58 12/20/19 12 12/20/2011 CBC w/dif f MCHC 32.4 g/dL 31.5-3 6.0 Not Available [facility] (Outpatient) [address] [place] [address], 64661, 12/20/2011 13:39:58 12/20/19 12 12/20/2011 CBC w/dif f RDW 13.2 % 10.8-1 4.6 Not Available [facility] ([facility]) [address] [place] [address], 16125, 12/20/2011 13:39:58 12/20/19 12 12/20/2011 CBC w/dif f MPV NA fL 7.2-10 .5 Not Available [facility] ([facility]) [address] [place] [address], 56342, 12/20/2011 13:39:58 12/20/19 12 12/20/2011 CBC w/dif f platelet count 185 K/uL 130-40 0 Not Available [facility] ([facility]) [address] [place] [address], 06836, 12/20/2011 13:39:58 12/20/19 12 12/20/2011 CBC w/dif f neutrophils 79.4 % 45.3-7 7.7 high Not Available [facility] ([facility]) [address] [place] [address], 54474, 12/20/2011 13:39:58 12/20/19 12 12/20/2011 CBC w/dif f lymphocytes 11.9 % 12.3-3 9.7 low Not Available [facility] ([facility]) [address] [place] [address], 18445, 12/20/2011 13:39:58 12/20/19 12 12/20/2011 CBC w/dif f monocytes 7.8 % 4.1-12 .8 Not Available [facility] ([facility]) [address] [place] [address], 43349, 12/20/2011 13:39:58 12/20/19 12 12/20/2011 CBC w/dif f eosinophils 0.40 % 0.00-7 .20 Not Available [facility] ([facility]) [address] [place] [address], 85494, 12/20/2011 13:39:58 12/20/19 12 12/20/2011 CBC w/dif f basophils 0.30 % 0.00-2 .80 Not Available [facility] ([facility]) [address] [place] [address], 30326, 12/20/2011 13:39:58 12/20/19 12 12/20/2011 CBC w/dif f absolute neutrophil 8.1 K/uL 1.4-7. 7 high Not Available [facility] ([facility]) [address] [place] [address], 81915, 12/20/2011 13:39:58 12/20/19 12 12/20/2011 CBC w/dif f absolute lymphocyte 1.2 K/uL 0.6-3. 2 Not Available [facility] ([facility]) [address] [place] [address], 07341, 12/20/2011 13:39:58 12/20/19 12 12/20/2011 CBC w/dif f absolute monocytes 0.8 K/uL 0.1-0. 6 high Not Available [facility] ([facility]) [address] [place], [address], 12/20/2011 13:39:58 12/20/19 12 12/20/2011 CBC w/dif f absolute eosinophil 0.04 K/uL 0.01-0 .50 Not Available [facility] ([facility]) [address] [place], [address], 12/20/2011 13:39:58 12/20/19 12 12/20/2011 CBC w/dif f absolute basophils 0.03 K/uL Not Available [facility] ([facility]) [address] [place] [address], 69257, 12/20/2011 13:39:58 12/20/19 12 12/20/2011 CBC w/dif f immature granulocyte 0.20 % 0.00-0 .50 Not Available [facility] ([facility]) [address] [place], [address], 12/20/2011 13:39:58 12/20/19 12 12/20/2011 CBC w/dif f absolute immature granulocyte 0.02 K/uL 0.00-0 .03 Not Available [facility] ([facility]) [address] [place] [address], 65975, 12/20/2011 13:39:58 12/20/19 12 12/20/2011 basic metab olic panel glucose 100 mg/dL 70-99 high Not Available [facility] ([facility]) [address] [place] [address], 11078, 12/20/2011 14:29:29 12/20/19 12 12/20/2011 basic metab olic panel BUN 7 mg/dL 6-19 Not Available [facility] ([facility]) [address] [place] [address], 96100, 12/20/2011 14:29:29 12/20/19 12 12/20/2011 basic metab olic panel creatinine 0.9 mg/dL 0.5-1. 5 Not Available [facility] ([facility]) [address] [place], [address], 12/20/2011 14:29:29 12/20/19 12 12/20/2011 basic metab olic panel GFR >60 Not Available [facility] ([facility]) [address] [place], [address], 12/20/2011 14:29:29 12/20/19 12 12/20/2011 basic metab olic panel sodium 140 mEq/L 133-14 5 Not Available [facility] ([facility]) [address] [place], [address], 12/20/2011 14:29:29 12/20/19 12 12/20/2011 basic metab olic panel potassium 3.5 mEq/L 3.3-5. 1 Not Available [facility] ([facility]) [address] [place], [address], 12/20/2011 14:29:29 12/20/19 12 12/20/2011 basic metab olic panel chloride 102 mEq/L 96-108 Not Available [facility] ([facility]) [address] [place], [address], 12/20/2011 14:29:29 12/20/19 12 12/20/2011 basic metab olic panel CO2 28 mEq/L 21-35 Not Available [facility] ([facility]) [address] [place], [address], 12/20/2011 14:29:29 12/20/19 12 12/20/2011 basic metab olic panel calcium 10.0 mg/dL 8.4-10 .3 Not Available [facility] ([facility]) [address] [place], [address], 12/20/2011 14:29:29 12/20/19 12 12/20/2011 basic metab olic panel anion gap 14 mEq/L 10-20 Not Available [facility] ([facility]) [address] [place], [address], 12/20/2011 14:29:29 12/20/19 12 12/20/2011 C-maryann ctive prote in (CRP) C-reactive protein <0.1 mg/dL 0.0-0. 5 Not Available [facility] ([facility]) [address] [place], [address], 12/20/2011 14:29:31 12/20/19 12 12/20/2011 hepat ic funct ion panel alkaline phosphatase 104 U/L 39-117 Not Available [facility]) [address] [place], [address], 12/20/2011 14:29:32 12/20/19 12 12/20/2011 hepat ic funct ion panel total bilirubin 0.7 mg/dL 0.0-1. 5 Not Available [facility] ([facility]) [address] [place], [address], 12/20/2011 14:29:32 12/20/19 12 12/20/2011 hepat ic funct ion panel bilirubin direct <0.2 mg/dL 0.0-0. 3 Not Available [facility] ([facility]) [address] [place], [address], 12/20/2011 14:29:32 12/20/19 12 12/20/2011 hepat ic funct ion panel bilirubin indirect see below mg/dL not able to calcu late. Not Available [facility] ([facility]) [address] [place], [address], 12/20/2011 14:29:32 12/20/19 12 12/20/2011 hepat ic funct ion panel AST (SGOT) 14 U/L 0-37 Not Available [facility] ([facility]) [address] [place], [address], 12/20/2011 14:29:32 12/20/19 12 12/20/2011 hepat ic funct ion panel ALT (SGPT) 9 U/L 0-40 Not Available [facility] ([facility]) [address] [place], [address], 12/20/2011 14:29:32 12/20/19 12 12/20/2011 hepat ic funct ion panel total protein 7.7 g/dL 6.5-8. 0 Not Available [facility] ([facility]) [address] [place], [address], 12/20/2011 14:29:32 12/20/19 12 12/20/2011 hepat ic funct ion panel albumin 4.7 g/dL 3.9-4. 8 Not Available [facility] ([facility]) [address] [place], [address], 12/20/2011 14:29:32 12/20/19 12 12/20/2011 hepat ic funct ion panel globulin 3.0 gm/dL 1.0-4. 8 Not Available [facility] ([facility]) [address] [place], [address], 12/20/2011 14:29:32 12/20/19 12 12/20/2011 hepat ic funct ion panel A/G ratio 1.6 gm/dL 1.0-4. 8 Not Available [facility] ([facility]) [address] [place], [address], 12/20/2011 14:29:32 12/20/19 12 12/20/2011 amyla se amylase 65 U/L 28-100 Not Available [facility] ([facility]) [address] [place], [address], 12/20/2011 14:29:33 12/20/19 12 12/20/2011 lipas e lipase 28 U/L 16-63 Not Available [facility] ([facility]) [address] [place], [address], 12/20/2011 14:29:34 12/20/19 12 12/20/2011 rola t blood , marcia n occult blood card #1 Negati ve negati ve Not Available [facility] ([facility]) [address] [place], [address], 12/20/2011 15:03:23 12/20/19 12 12/20/2011 cultu re, stool culture stool No [place] [facility], Shigel la or Campyl obacte r isolat ed Not Available [facility] (Outpatient) [address] [place], [address], 12/23/2011 13:47:47 10/06/20 12 10/06/2012 thyro id stimu latin g hormo ne (TSH) TSH 0.99 uIU/m L 0.50-6 .00 the ameri can colle ge of endoc rinol ogy and ameri can thyro id assoc iatio n recom mend goal TSH value s betwe en 1.0-2 .5 mIU/m L. Not Available [address], [address], 10/06/2012 11:20:27 10/06/20 12 10/06/2012 CBC WBC 4.9 K/ L 4.0-10 .0 Not Available [address], [address], 10/06/2012 11:32:51 10/06/20 12 10/06/2012 CBC RBC 5.01 M/ L 3.93-5 .22 Not Available [address], [address], 10/06/2012 11:32:51 10/06/20 12 10/06/2012 CBC HGB 11.1 g/dL 11.2-1 5.7 low Not Available [address], [address], 10/06/2012 11:32:51 10/06/2010/06/2012 CBC HCT 35.4 % 34.1-4 4.9 Not Available [address], [address], 10/06/2012 11:32:51 10/06/2010/06/2012 CBC MCV 70.7 L 79.4-9 4.8 low Not Available [address], [address], 10/06/2012 11:32:51 10/06/2010/06/2012 CBC MCH 22.2 pg 25.6-3 2.2 low Not Available [address], [address], 10/06/2012 11:32:51 10/06/2010/06/2012 CBC MCHC 31.4 g/dL 32.2-3 5.5 low Not Available [address], [address]49, 10/06/2012 11:32:51 10/06/2010/06/2012 CBC plt 235.0 K/ L 182.0- 369.0 Not Available [address], [address], 10/06/2012 11:32:51 10/06/2010/06/2012 CBC MPV 13.3 9.4-12 .3 high Not Available [address], [address], 10/06/2012 11:32:51 10/06/2010/06/2012 CBC neut% 57.1 % 34.0-7 1.1 Not Available [address], [address], 10/06/2012 11:32:51 10/06/2010/06/2012 CBC neut# 2.8 1.6-6. 1 Not Available [address], [address], 10/06/2012 11:32:51 10/06/20 12 10/06/2012 CBC lymph % 31.4 % 19.3-5 1.7 Not Available [address], [address], 10/06/2012 11:32:51 10/06/20 12 10/06/2012 CBC lymph # 1.5 K/ L 1.2-3. 7 Not Available [address], [address], 10/06/2012 11:32:51 10/06/20 12 10/06/2012 CBC mono% 9.0 % 4.7-12 .5 Not Available [address], [address], 10/06/2012 11:32:51 10/06/20 12 10/06/2012 CBC mono# 0.4 0.2-0. 4 high Not Available [address], [address], 10/06/2012 11:32:51 10/06/20 12 10/06/2012 CBC eo% 2.3 % 0.7-5. 8 Not Available [address], [address], 10/06/2012 11:32:51 10/06/20 12 10/06/2012 CBC eo# 0.1 0.0-0. 4 Not Available [address], [address], 10/06/2012 11:32:51 10/06/20 12 10/06/2012 CBC baso% 0.2 % 0.1-1. 2 Not Available [address], [address], 10/06/2012 11:32:51 10/06/20 12 10/06/2012 CBC baso# 0.0 0.0-0. 1 low Not Available [address], [address]663, 10/06/2012 11:32:51 10/06/20 12 10/06/2012 CBC RDW-CV 13.7 % 11.7-1 4.4 Not Available [address], [address], 10/06/2012 11:32:51 10/06/2010/06/2012 RBC morph ology poik slight Not Available [address], [address], 10/06/2012 11:32:51 10/06/2010/06/2012 RBC morph ology aniso slight Not Available [address], [address], 10/06/2012 11:32:51 10/06/2010/06/2012 RBC morph ology micro modera te Not Available [address], [address], 10/06/2012 11:32:51 10/06/2010/06/2012 RBC morph ology ovalocyte slight Not Available [address], [address]753, 10/06/2012 11:32:51 10/06/2010/06/2012 compr ehens alondra metab olic panel glucose 76 mg/dL 70-100 Not Available [address], [address], 10/06/2012 11:34:47 10/06/2010/06/2012 compr ehens alondra metab olic panel BUN 12 mg/dL 7-18 Not Available [address], [address], 10/06/2012 11:34:47 10/06/2010/06/2012 compr ehens alondra metab olic panel creatinine 1.0 mg/dL 0.8-1. 3 Not Available [address], [address], 10/06/2012 11:34:47 10/06/20 10/06/2012 compr ehens alondra metab olic panel B/C 12.0 ratio Not Available [address], [address], 10/06/2012 11:34:47 10/06/20 12 10/06/2012 compr ehens alondra metab olic panel GFR 76.3 mL/mi n recom roly d GFR by the natio nal kidne y found ation >60 mL/mi n/1.7 3m2 - gely l <60 mL/mi n/1.7 3m2 - chron ic kidne y disea se <15 mL/mi n/1.7 3m2 - kidne y failu re Not Available [address], [address], 10/06/2012 11:34:47 10/06/20 12 10/06/2012 compr ehens alondra metab olic panel GFR - if 87.7 mL/mi n for afric an ameri can patie nts: resul ts multi plied by 1.21 Not Available [address], [address], 10/06/2012 11:34:47 10/06/20 12 10/06/2012 compr ehens alondra metab olic panel sodium 139 mmol/ L 136-14 5 Not Available [address], [address], 10/06/2012 11:34:47 10/06/20 12 10/06/2012 compr ehens alondra metab olic panel potassium 3.8 mmol/ L 3.5-5. 1 Not Available [address], [address], 10/06/2012 11:34:47 10/06/20 12 10/06/2012 compr ehens alondra metab olic panel chloride 104 mmol/ L 96-107 Not Available [address], 35938, 10/06/2012 11:34:47 10/06/20 12 10/06/2012 compr ehens alondra metab olic panel _anion gap 5.0 Not Available [address], [address]158, 10/06/2012 11:34:47 10/06/20 12 10/06/2012 compr ehens alondra metab olic panel CO2 30 mmol/ L 21-32 Not Available [address], [address]87, 10/06/2012 11:34:47 10/06/20 12 10/06/2012 compr ehens alondra metab olic panel calcium 9.0 mg/dL 8.5-10 .3 Not Available [address], [address]276, 10/06/2012 11:34:47 10/06/20 12 10/06/2012 compr ehens alondra metab olic panel total protein 7.0 g/dL 6.4-8. 2 Not Available [address], [address]0436, 10/06/2012 11:34:47 10/06/20 12 10/06/2012 compr ehens alondra metab olic panel albumin 4.1 g/dL 3.4-5. 0 Not Available [address], 90993, 10/06/2012 11:34:47 10/06/20 12 10/06/2012 compr ehens alondra metab olic panel globulin 2.9 g/dL Not Available [address], [address]149, 10/06/2012 11:34:47 10/06/20 12 10/06/2012 compr ehens alondra metab olic panel A/G 1.4 ratio 0.8-2. 0 Not Available [address], [address], 10/06/2012 11:34:47 10/06/20 12 10/06/2012 compr ehens alondra metab olic panel total bilirubin 0.50 mg/dL 0.00-1 .00 Not Available [address], 8[address]70, 10/06/2012 11:34:47 10/06/2010/06/2012 compr ehens alondra metab olic panel AST 15 U/L 15-37 Not Available [address], [address]06, 10/06/2012 11:34:47 10/06/2010/06/2012 compr ehens alondra metab olic panel ALT 31 U/L 30-65 Not Available [address], [address], 10/06/2012 11:34:47 10/06/2010/06/2012 compr ehens alondra metab olic panel alk. phos. 103 U/L 50-136 Not Available [address], [address], 10/06/2012 11:34:47 10/06/2010/07/2012 iron defic iency profi le iron 68 ug/dL 35-150 Not Available [address], [address], 10/07/2012 08:02:08 10/06/2010/07/2012 iron defic iency profi le T.I.B.C. 356 ug/dL 250-45 0 Not Available [address], [address], 10/07/2012 08:02:08 10/06/2010/07/2012 iron defic iency profi le % saturation 19.1 % Not Available [address], [address], 10/07/2012 08:02:08 10/06/2010/07/2012 T4 free free T4 0.91 NG/dL 0.75-1 .54 Not Available [address], [address], 10/07/2012 09:15:15 10/06/20 12 10/12/2012 vitam in B12 vitamin B12 448 pg/mL 230-10 50 Not Available [address], [address], 10/12/2012 11:23:33 03/31/20 13 03/31/2013 basic metab olic panel glucose 96 mg/dL 70-100 Not Available [address], [address], 03/31/2013 10:35:38 03/31/20 13 03/31/2013 basic metab olic panel BUN 10 mg/dL 7-18 Not Available [address], [address], 03/31/2013 10:35:38 03/31/20 13 03/31/2013 basic metab olic panel creatinine 1.0 mg/dL 0.8-1. 3 Not Available [address], [address], 03/31/2013 10:35:38 03/31/20 13 03/31/2013 basic metab olic panel B/C 10.0 ratio Not Available [address], [address], 03/31/2013 10:35:38 03/31/20 13 03/31/2013 basic metab olic panel GFR 76.3 mL/mi n recom orly d GFR by the natio nal kidne y found ation >60 mL/mi n/1.7 3m2 - gely l <60 mL/mi n/1.7 3m2 - chron ic kidne y disea se <15 mL/mi n/1.7 3m2 - kidne y failu re Not Available [address], [address], 03/31/2013 10:35:38 03/31/20 13 03/31/2013 basic metab olic panel GFR - if 87.7 mL/mi n for afric an ameri can patie nts: resul ts multi plied by 1.21 Not Available [address], [address], 03/31/2013 10:35:38 03/31/20 13 03/31/2013 basic metab olic panel sodium 139 mmol/ L 136-14 5 Not Available [address], 15[address], 03/31/2013 10:35:38 03/31/20 13 03/31/2013 basic metab olic panel potassium 3.8 mmol/ L 3.5-5. 1 Not Available [address], [address], 03/31/2013 10:35:38 03/31/20 13 03/31/2013 basic metab olic panel chloride 102 mmol/ L 96-107 Not Available [address], [address], 03/31/2013 10:35:38 03/31/20 13 03/31/2013 basic metab olic panel _anion gap 9.0 Not Available [address], [address], 03/31/2013 10:35:38 03/31/20 13 03/31/2013 basic metab olic panel CO2 28 mmol/ L 21-32 Not Available [address], [address], 03/31/2013 10:35:38 03/31/20 13 03/31/2013 basic metab olic panel calcium 8.4 mg/dL 8.5-10 .3 low Not Available [address], [address], 03/31/2013 10:35:38 03/31/20 13 03/31/2013 CBC WBC 8.3 K/ L 4.0-10 .0 Not Available [address], [address], 03/31/2013 14:36:50 03/31/20 13 03/31/2013 CBC RBC 4.89 M/ L 3.93-5 .22 Not Available [address], [address], 03/31/2013 14:36:50 03/31/20 13 03/31/2013 CBC HGB 11.0 g/dL 11.2-1 5.7 low Not Available [address], [address], 03/31/2013 14:36:50 03/31/20 13 03/31/2013 CBC HCT 34.5 % 34.1-4 4.9 Not Available [address], [address]686, 03/31/2013 14:36:50 03/31/20 13 03/31/2013 CBC MCV 70.6 L 79.4-9 4.8 low Not Available [address], [address], 03/31/2013 14:36:50 03/31/20 13 03/31/2013 CBC MCH 22.5 pg 25.6-3 2.2 low Not Available [address], [address], 03/31/2013 14:36:50 03/31/20 13 03/31/2013 CBC MCHC 31.9 g/dL 32.2-3 5.5 low Not Available [address], [address], 03/31/2013 14:36:50 03/31/20 13 03/31/2013 CBC plt 217.0 K/ L 182.0- 369.0 Not Available [address], [address], 03/31/2013 14:36:50 03/31/2003/31/2013 CBC MPV 12.3 9.4-12 .3 Not Available [address], [address], 03/31/2013 14:36:50 03/31/20 13 03/31/2013 CBC neut% 72.2 % 34.0-7 1.1 high Not Available [address], [address], 03/31/2013 14:36:50 03/31/20 13 03/31/2013 CBC neut# 6.0 1.6-6. 1 Not Available [address], [address], 03/31/2013 14:36:50 03/31/20 13 03/31/2013 CBC lymph % 17.6 % 19.3-5 1.7 low Not Available [address], [address], 03/31/2013 14:36:50 03/31/20 13 03/31/2013 CBC lymph # 1.5 K/ L 1.2-3. 7 Not Available [address], [address], 03/31/2013 14:36:50 03/31/20 13 03/31/2013 CBC mono% 8.9 % 4.7-12 .5 Not Available [address], [address], 03/31/2013 14:36:50 03/31/20 13 03/31/2013 CBC mono# 0.7 0.2-0. 4 high Not Available [address], [address], 03/31/2013 14:36:50 03/31/20 13 03/31/2013 CBC eo% 1.1 % 0.7-5. 8 Not Available [address], [address], 03/31/2013 14:36:50 03/31/2003/31/2013 CBC eo# 0.1 0.0-0. 4 Not Available [address], [address], 03/31/2013 14:36:50 03/31/20 13 03/31/2013 CBC baso% 0.2 % 0.1-1. 2 Not Available [address], [address], 03/31/2013 14:36:50 03/31/20 13 03/31/2013 CBC baso# 0.0 0.0-0. 1 low Not Available [address], [address], 03/31/2013 14:36:50 03/31/20 13 03/31/2013 CBC RDW-CV 14.0 % 11.7-1 4.4 Not Available [address], [address], 03/31/2013 14:36:50 03/31/20 13 03/31/2013 RBC morph ology hypochrom mild lplt= large platl ets appea r on smear Not Available [address], [address], 03/31/2013 14:55:28 03/31/20 13 03/31/2013 RBC morph ology ovalocyte mild Not Available [address], [address], 03/31/2013 14:55:28 09/07/20 13 09/10/2013 chlam ydia/ GC DNA, sda N. gonorrhoeae Neg negati ve Not Available [address], [address], 09/10/2013 18:06:50 09/07/20 13 09/10/2013 chlam ydia/ GC DNA, sda C. trachomatis Neg negati ve Not Available [address], [address], 09/10/2013 18:06:50 03/30/20 13 03/30/2013 x-ray , [...] radiog raph. Electr onical ly signed Kacy mosquedan: Tristin Turner MD [facility] (Imaging) [address] , [place], [address], 05/20/2013 04:11:48 Result Notes None recorded. Problems Name Problem SNOMED Code Status Onset Date Resolution Date Notes Provider Name and Address Organization Details Recorded Time Anxiety 56667927 Active Na Furcolo D.O. [address] [place] [address], [id number] , [facility] 3 17:28:03 Acne 61254252 Active Na Furcolo D.O. [address] [place] [address], [id number] , [facility] 3 17:28:03 Injury of finger 17184142 Completed 200108/03/2011 Not Available [facility] 3 03:04:39 Joint pain in ankle and foot Completed 200508/03/2011 Not Available [facility] 3 03:04:39 Abdominal pain 37352130 Completed 200608/03/2011 Not Available [facility] 3 03:04:39 Precordial pain 46933808 Completed 08/03/2011 Not Available [facility] 3 03:04:39 Knee pain Completed 200508/03/2011 Not Available [facility] 3 03:04:39 Injury of knee [id number] Completed 200408/03/2011 Not Available [facility] 3 03:04:39 Sprain of superior tibiofibul ar ligament [id number] Completed 200708/03/2011 Not Available [facility] 3 03:04:39 Anemia [id number] Active 2003 Not Available [facility] 3 03:04:39 Astigmatis m [id number] Completed 200708/03/2011 Not Available [facility] 3 03:04:39 Backache [id number] Completed 200708/03/2011 Not Available [facility] 3 03:04:39 Pain of wrist region 39338084 Completed 200108/03/2011 Not Available [facility] 3 03:04:39 Pain in limb 79565565 Completed 200708/03/2011 Not Available [facility] 3 03:04:39 Sprain of ankle 98566962 Completed 200508/03/2011 Not Available [facility] 3 03:04:39 Problem Notes None recorded. Procedures Surgical History Date Name Laterality Status Provider Name and Address Organization Details Recorded Time 1 Plantar Wart completed Maral Pelayo MD [address] [place] [address], [phone], [facility] 07/01/2011 12:34:29 Imaging Results None recorded. Procedure Notes None recorded. Medical Equipment None [...] Body mass index (BMI) Heart rate Systolic And Diastolic Provider Name and Address Organization Details Last Updated DateTime 12/22/2011 165.1 cm 30036.49 203 g 19.8 kg/m2 78 /min 102/70 mm[Hg] [facility] 2 13:55:22 Date Recorded Body height Body weight Body mass index (BMI) Heart rate Systolic And Diastolic Provider Name and Address Organization Details Last Updated DateTime 03/30/2013 165.1 cm 09919.52 0642 g 19.2 kg/m2 80 /min 94/74 mm[Hg] Judie Fine [facility] 03/30/2013 16:25:01 Date Recorded Body height Body weight Body mass index (BMI) Heart rate Systolic And Diastolic Provider Name and Address Organization Details Last Updated DateTime 07/10/2013 165.1 cm 30130.03 4949 g 18.9 kg/m2 91 /min 102/85 mm[Hg] Padmini Vallejo [facility] 07/10/2013 13:49:48 Date Recorded Body height Body weight Body mass index (BMI) Heart rate Systolic And Diastolic Provider Name and Address Organization Details Last Updated DateTime 09/07/2013 165.1 cm 60505.12 255 g 19.1 kg/m2 66 /min 98/64 mm[Hg] Judie Fine [facility] 09/07/2013 16:51:14 Date Recorded Body height Body weight Body mass index (BMI) Heart rate Oxygen saturation Oxygen saturation in Arterial blood by Pulse oximetry Systolic And Diastolic Provider Name and Address Organization Details Last Updated DateTime 2 165.1 cm 14908.6 7677 g 20.1 kg/m2 72 /min 100 % 100 % 98/62 mm[Hg] [facility] 2 14:56:37 Social History Question Answer Notes LastModified by Organizat ion Details LastModified Time Tobacco Smoking Status Never Smoker Not Available [facility] 09/10/2011 04:57:24 Do You Have An Advance Directive? No Information not available 09/10/2011 What Is Your Level Of Caffeine Consumption? Occasional Information not available 09/10/2011 How Much Tobacco Do You Chew? None Information not available 09/10/2011 What Type Of Diet Are You Following? REGULAR Information not available 09/10/2011 Education 4 Year College [id number] Information not available 09/10/2011 How Many Days In The Past Year [...] 09/07/2013 Do You Use Sunscreen Routinely? No Information not available 09/10/2011 Sex: Unknown Functional Status Question Answer Note LastModified by Organizat ion Details LastModified Time What is your level of alcohol consumption? 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 Family History Relationship [...] Hep B, adolescent or pediatric 2 completed Ivette Hoffmann LPN null, [facility] 04/25/2014 15:21:20 Td(adult) unspecified formulation 1 completed Ivette Hoffmann LPN null, [facility] 04/25/2014 15:21:20 DTP 9 completed Ivette Hoffmann LPN null, [facility] 04/25/2014 15:21:20 MMR 5 completed Ivette Hoffmann LPN null, [facility] 04/25/2014 15:21:20 Tdap 0 completed Ivette Hoffmann LPN null, [facility] 04/25/2014 15:21:20 meningococcal ACWY, unspecified formulation 7 completed Ivette Hoffmann LPN null, [facility] 04/25/2014 15:21:20 HPV, unspecified formulation 0 completed Ivette Hoffmann LPN null, [facility] 04/25/2014 15:21:20 MMR 0 completed Ivette Hoffmann LPN null, [facility] 04/25/2014 15:21:20 OPV 9 completed Ivette Hoffmann LPN null, [facility] 04/25/2014 15:21:20 DTP 5 completed Ivette Hoffmann LPN null, [facility] 04/25/2014 15:21:20 DTP 9 completed Ivette Hoffmann LPN null, [facility] 04/25/2014 15:21:20 Hep B, adolescent or pediatric 0 completed Ivette Hoffmann LPN null, [facility] 04/25/2014 15:21:20 OPV 9 completed Ivette Hoffmann LPN null, [facility] 04/25/2014 15:21:20 OPV 0 completed Ivette Hoffmann LPN null, [facility] 04/25/2014 15:21:20 OPV 5 completed Ivette Hoffmann LPN null, [facility] 04/25/2014 15:21:20 HPV, unspecified formulation 8 completed Ivette Hoffmann LPN null, [facility] 04/25/2014 15:21:20 Hib (HbOC) 0 completed Ivette Hoffmann LPN null, [facility] 04/25/2014 15:21:20 DTP 9 completed Ivette Hoffmann LPN null, [facility] 04/25/2014 15:21:20 HPV, unspecified formulation 7 completed Ivette Hoffmann LPN null, [facility] 04/25/2014 15:21:20 Hep B, adolescent or pediatric 1 completed Ivette Hoffmann LPN null, [facility] 04/25/2014 15:21:20 DTP 0 completed Ivette Hoffmann LPN null, [facility] 04/25/2014 15:21:20 Past Encounters Encounter ID Performer Location Encounter Start Date Encounter Closed Date Diagnosis/Indication Diagnosis SNOMED-CT Code Diagnosis ICD10 Code Diagnosis Note [id number] [facility] , [address] [address] 02/27/2002 14:00:00 11/14/2008 02:02:29 [id number] [facility] , [address] [address] 04/21/2002 16:08:36 11/14/2008 02:02:29 [id number] [facility] - [address] [address] 04/11/2004 11:28:12 04/11/2004 11:28:30 [id number] [facility] - [address] [address] 08/06/2004 11:43:41 08/06/2004 11:57:00 [id number] [facility] - [address] [address] 04/09/2005 11:51:39 04/09/2005 11:52:02 [id number] [facility] , [address] [address] 07/09/2005 08:49:27 07/09/2005 08:50:51 [id number] [facility] , [facility] [place] [address] 07/09/2005 00:00:00 11/14/2008 02:02:29 [id number] [facility] - [facility] [place] [address] 07/09/2005 09:27:34 07/09/2005 09:28:02 [id number] Ralph Champion i, PT Physical Therapy, [facility] [place] [address] 01/12/2006 08:09:19 01/12/2006 09:31:08 [id number] [facility] - [facility] [place] [address] 03/30/2006 12:12:37 03/30/2006 12:12:46 [id number] [facility] , [address] [place] [address] 07/20/2006 09:34:07 07/20/2006 14:13:24 [id number] [facility] , [facility] [place] [address] 07/20/2006 00:00:00 11/14/2008 02:02:29 [id number] [facility] - [facility] [place] [address] 05/04/2007 15:41:32 05/04/2007 15:41:47 [id number] [facility] , [address] [place] [address] 10/26/2007 10:33:03 10/26/2007 11:01:53 [id number] [facility] , [facility] Ed [facility] [place] [address] 10/26/2007 00:00:00 11/14/2008 02:02:29 [id number] [facility], [facility] [place] [address] 10/27/2007 10:23:03 10/27/2007 15:33:08 [id number] [facility] - [address] [place] [address] 10/26/2007 11:34:23 10/26/2007 11:34:29 [id number] [facility] , [facility] [address] [place] [address] 03/27/2008 10:23:03 03/27/2008 13:13:03 [id number] [facility] , [facility] [address] [place] [address] 03/27/2008 00:00:00 11/14/2008 02:02:29 [id number] Tiffanie Koroma, PT Physical Therapy, [address] [place] [address] 04/05/2008 07:56:47 04/05/2008 07:57:12 [id number] [facility] , [address] [place] [address] 06/11/2010 15:01:18 06/13/2010 10:06:27 [id number] Maral Pelayo MD [facility], [address] [place] [address] 07/01/2011 11:25:11 07/01/2011 12:34:43 [id number] Na Han D.O. [address] [place] [address] 08/03/2011 08:34:08 08/03/2011 09:21:24 [id number] Calli Mon NP [address] [place] [address] 11/04/2011 11:07:47 11/04/2011 11:51:56 [id number] Na Han D.O. [address] [place] [address] 12/22/2011 13:48:05 12/22/2011 14:11:59 [id number] Na Han D.O. [address] [place] [address] 10/05/2012 14:47:48 10/05/2012 15:12:37 [id number] Na Han D.O. [address] [place] [address] 03/30/2013 15:52:00 03/30/2013 16:53:38 [id number] Barrington Oliveira MD [facility], OFFICE [address] [place] [address] 07/10/2013 13:37:51 07/10/2013 14:55:05 Panic attack [id number] Breathing exercises, avoiding caffeine and stimulatin g meds like sudafed or otc cold products. We have opted to trial a low dose of citalopram at hs. She will trial lorazepam at a low dose given her petite size. Can be used preventati vely and prn for anxiety Gastritis [id number] Possib ly related to anxiety and stress. We discussed culprit foods to avoid and proper med dosing. [id number] Na SANTOS, [facility], OFFICE [address] [place] [address] 09/07/2013 16:08:33 09/08/2013 08:10:25 Examination for population survey [id number] Adult [facility] th examination [id number] see Risk Assessment and Lifestyle Change Counseling section above Counseling [id number] Acne 37341618 on spironolac tone and beyaz OCP Headache 76334190 mild headache, resolved, no aura assocaited , no history of migraine. Anxiety 96557041 mostly improved, weaning off citalopram . uses lorazepam sparingly Health Concerns Section Related Observation LastModified by Organization Detai ls LastModified Time None Recorded Concern Status LastModified by Organization Details LastModified Time None Recorded Advance Directives Directive N: Payers Insurance Date Sequence Insurance Name Policy Number Policy Desai Covered Member ID Desai Member ID Guarantor Name 12/13/2017 1 [facility] ([facility] [id number] Erin Cates Haqq [id number] Erin Cates Haqq 07/25/2010 1 [facility] ([facility]) [id number] Sai Haqq [id number] Erin Cates Haqq 10/06/2012 EYEM[facility] Erin Cates Haqq [id number] Erin Cates Haqq Notes Date Note Type Note Provider Name and Address Organization Details Recorded Time 12/22/2011 text/html Erin is here f or follow-up on [facility] ER visit on 12/20/10. Pt had [...] ? ameoba parasite. Calli Mon NP [address] [place], [address], [facility] 12/22/2011 14:13:53 10/05/2012 text/html Erin is here [...] patience. very thirsty. Calli Mon NP [address] [place], [address], [facility] 10/05/2012 15:14:28 03/30/2013 text/html had sensation of [...] with her acne. Na Han D.O. [address] [place], [address], [facility] 03/30/2013 17:51:31 07/10/2013 text/html Pt reports that [...] also struggling with anxiety. Barrington Oliveira MD [address] [place] [address], [phone], [facility] 07/23/2013 22:44:03 OBGyn Episode No OBEpisode recorded.
== END 2025-04-26 13:37 | disposition home or self-care (01) ==
LOC: HO.HMCC 10:38
PROVIDERS: PCP Internal Medicine; Visit Provider Internal Medicine
DX: M76.52 Patellar tendinitis, left knee (principal)

== ENCOUNTER 2025-08-31 15:06 | Outpatient (AMB) | payer OTHER, SELFPAY ==
[2025-08-31 15:16] VITALS: BP 106/66; PULSE 70; TEMP 36.8; O2SAT 100; BMI 21.0
--- NOTE | 2025-08-31 15:16 | MHC.OFFWIV ---
Intake Vital Signs 08/31/25 15:16 Height 5 ft 6 in Weight 130 lb BMI 21.0 BP 106/66 Blood Pressure Location Lt brachial Position Sitting Pulse 70 Pulse Source Pulse Oximeter Temp 98.3 F Temp Source Oral Pulse Oximetry (%) 100 Oxygen Delivery Method Room Air Intake Visit Reasons: ep chest pains Intake Note: pt presents with left upper chest discomfort (twines of pain) near clavicle that sometimes radiates into left shoulder and left neck x2 weeks Patient Tobacco Use Status: Never used Tobacco Allergies No Known Allergies (No Known Allergies*) Allergy (Verified 08/31/25 15:20) Do you need a note to return to daycare/school/sports/work: No HPI HPI Comments History of Present Illness Details This is a 34-year-old female with a past medical history of acne maintained on spironolactone and anxiety presenting for evaluation of left upper chest pains that she has had for the past 10 days. Patient states the pain is intermittent and she describes it as burning and achy in sensation. Patient reports occasional lightheadedness as well. Patient states that she went running today which did not exacerbate her discomfort and she is unable to identify any alleviating factors. She denies having any shortness for breath, cough, hemoptysis, nausea, vomiting or back pain. [facility] Medical History Palpitations Anemia Dysuria Fatigue Anxiety Urinary urgency Right shoulder pain Cervicalgia depression Mild intermittent asthma without complication Surgical History H/O adenoidectomy Family History Father Diabetes mellitus Mother No problems noted. 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 Current occupational exposures/hazards: No Cognitive needs: No Hearing needs: No Vision needs: Yes Review of Systems Const All systems reviewed & are unremarkable except as noted in HPI and below Reports as per HPI, Denies body aches, Denies chills, Denies fatigue and Denies fever(s) Card Reports chest pain, Reports chest pain at rest, Reports chest pain with activity, Denies rapid heart rate, Denies pedal edema, Denies irregular heart rhythm, Reports lightheadedness, Denies orthopnea and Denies paroxysmal nocturnal dyspnea Resp Reports no additional complaints, Denies chest congestion, Denies cough, Denies hemoptysis and Denies wheezing GI Denies nausea and Denies vomiting Musc Reports as per HPI, Denies back pain and Denies myalgias Skin/Breast Reports system reviewed and no additional complaints, except as documented Neuro Reports no additional complaints Endo Reports no additional complaints and Denies fatigue Aller/Immun Denies wheezing Physical Exam Vital Signs: Last Vital Signs Temp 98.3 F 08/31/25 15:16 Pulse 70 08/31/25 15:16 BP 106/66 08/31/25 15:16 Pulse Ox 100 08/31/25 15:16 Oxygen Delivery Method Room Air 08/31/25 15:16 BMI result Body Mass Index 21.0 Const General: cooperative, healthy appearing, comfortable, no acute distress, well developed, alert, awake, Physically active and well groomed; No acute distress Nutritional Appearance: average body habitus Orientation/consciousness: patient oriented x3 Limitations: no limitations Chest Chest palpation & inspection: no localized rib tenderness and no tenderness Resp Effort & Inspection: normal respiratory effort, able to speak in complete sentences and not tachypneic Auscultation: clear to auscultation bilaterally Cardio Rate: regular rate Rhythm: regular rhythm Skin General skin exam: no rashes or lesions noted Neuro General: patient oriented x3 Psych Appearance: grossly normal Mental Status: mental status grossly normal Insight: Good insight present (Psych) Judgement: Good judgement present (Psych) Results Reviewed Results Reviewed: EKG reveals with sinus arrhythmia at a rate of 68 beats per minute Assessment & Plan Assessment & Plan (1) Chest pain: Comment: Patient is evaluated. EKG is reviewed. Patient is not tachypneic or tachycardic on examination. Code(s): R07.9 - Chest pain, unspecified Qualifiers: Chest pain type: unspecified Qualified Code(s): R07.9 - Chest pain, unspecified Plan: Patient is reassured and does not warrant any further evaluation at this time. Patient has a physical examination scheduled next month and will keep a diary of her symptoms and bring them to her next visit with her PCP. Regardless, patient is invited to return at any time if her symptoms recur. Orders: Orders AMB EKG-In Office Today R07.9 - Chest pain, unspecified Coding Level of Care Code Est Pt Level 4 (54831) Diagnoses Chest pain, unspecified type R07.9 Chest pain type: unspecified Time Spent (min) 25
--- OUTSIDE RECORDS SUMMARY | 2025-08-31 16:19 | XMS_ITS | Clinical Summary ---
Author Organization [facility] Address [address] [place] [address] Care Team Providers Care Agency Sales Representative Name Role Phone Erin Box MD Primary Care Provider [phone] Allergies No known active allergies Medications triamcinolone (NASACORT AQ) 55 MCG/ACT Aerosol nasal sprayIndication s:Eustachian tube dysfunction, bilateral 2 sprays into each nostril daily. 1 each 3 02/05/2025 Active cetirizine (ZyrTEC) 10 MG tablet TAKE 1 TABLET BY MOUTH DAILY NEEDED FOR ALLERGY SYMPTOMS 12/04/2024 Active fluticasone (FloNASE) 50 mcg/spray nasal spray 1 spray into each nostril daily. 05/30/2024 Active spironolactone (ALDACTONE) 50 MG tablet Take [...] of finger 04/21/2002 Pain in wrist 02/27/2002 Immunizations Immunization Administration Dates Next Due DTP [...] Screening 2001 Pap Smear (Ages 21-65) 2009 Influenza Vaccine 05/25/2025 08/25/2022, 07/17/2020 COVID-19 Vaccine ( season) 2025 DTaP/Tdap/Td Vaccines (8 - Td or Tdap) 06/22/2032 06/22/2022, 04/24/2010, 12/17/2000, Additional history exists Hepatitis B Vaccines Completed 06/16/2002, 12/17/2000, 07/16/2000 HPV Vaccines Completed 04/24/2010, 12/23, 05/04/2007 Pneumococcal Vaccine: Pediatric (0-5 Years) and At-Risk Patients (6 to 49 Years) Aged Out No longer eligible based on patient's age to complete this topic Insurance [facility] H[facility] Care Teams Agency Sales Representative Relationship Specialty Start Date End Date Erin Box MD [address] [place] [address] PCP - General 02/05/25
== END 2025-08-31 16:03 | disposition home or self-care (01) ==
PROVIDERS: PCP Internal Medicine; Visit Provider Physician Assistant
DX: R07.9 Chest pain, unspecified (principal)

== ENCOUNTER → 2025-08-31 15:06 | Outpatient (BNVA) | payer OTHER, SELFPAY | PROVIDERS: PCP Internal Medicine; Visit Provider Physician Assistant | DX: J45.20 Mild intermittent asthma, uncomplicated (principal); R07.89 Other chest pain; F41.9 Anxiety disorder, unspecified | CPT/HCPCS: 93005 ==

== ENCOUNTER 2025-10-04 13:06 | Outpatient (AMB) | payer OTHER, SELFPAY ==
[2025-10-04 13:31] VITALS: BP 98/64; PULSE 78; RESP 17; TEMP 36.7; O2SAT 99; BMI 20.5
--- NOTE | 2025-10-04 13:31 | MHC.PC.OV ---
Vital Signs 10/04/25 13:31 Height 5 ft 6 in Weight 127 lb BMI 20.5 BP 98/64 Blood Pressure Location Rt brachial Position Sitting Respiration 17 Pulse 78 Pulse Source Pulse Oximeter Temp 98.0 F Temp Source Oral Pulse Oximetry (%) 99 Oxygen Delivery Method Room Air Intake Visit Reasons: Annual PE Intake Note: Pt is here today for PE. Allergies No Known Allergies (No Known Allergies*) Allergy (Verified 10/04/25 13:31) Medication List - Last Reconciled 10/04/25 by Erin Box MD magnesium glycinate 400 mg PO DAILY spironolactone 100 mg PO DAILY Tobacco use date assessed: 10/04/25 Dental Screening Dental Screen Date: 04/26/25 HPI Annual PE HPI Details Pt presents for PE. Pt c/o frequent HILTON pressure like for 2 months almost daily, usually starting in the mornings. She denies change in the vision nausea vomiting associated with the headaches. She has been under lot of stress completed master's program in May . Patient complains increasing DOWELL when walking up the stairs and feeling fatigued and tired. Pt runs 3 x a week but reports worsening stamina. Pt has been taking Spironolactone 75 mg since April for acne prescribed by dermatology and reports feeling lightheaded and having low blood pressure readings. She denies any fainting episodes [facility] Medical History Palpitations Anemia Dysuria Fatigue Anxiety Urinary urgency Right shoulder pain Cervicalgia depression Mild intermittent asthma without complication Surgical History H/O adenoidectomy Family History Father Diabetes mellitus Mother No problems noted. 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 Current occupational exposures/hazards: No Cognitive needs: No Hearing needs: No Vision needs: Yes Questionnaire Thrive Questionnaire Date Thrive assessed: 12/04/24 I am a: Patient What is your living situation today?: I have a steady place to live Within the past 12 months, did the food you bought not last and you didn't have the money to get more?: I choose not to answer this question Within the past 12 months, did you worry whether your food would run out before you got money to buy more?: I choose not to answer this question Do you have trouble paying for medicines?: I choose not to answer this question Do you have trouble getting transportation to medical appointments?: I choose not to answer this question Do you have trouble paying your heating and electricity bill?: I choose not to answer this question Do you have trouble taking care of your child, family member or friend?: I choose not to answer this question Do you have trouble with day-to-day activities such as bathing, preparing meals, shopping, managing finances, etc.?: I choose not to answer this question Are you currently unemployed and looking for a job?: I choose not to answer this question Are you interested in more education?: I choose not to answer this question Please select the resources that you would like help with: None Currently or been in a relationship where the following occur: I choose not to answer THRIVE Score: 0 ROSHAN-7 AMB Questionnaire ROSHAN-7 Date ROSHAN - 7 assessed: 12/04/24 Source: Developed by Drs. Barrington López, Juana Morgan, Joey Almendarez and colleagues, with an educational laurie from [employer]. Review of Systems Const All systems reviewed & are unremarkable except as noted in HPI and below Eyes Reports no additional complaints ENT Reports no additional complaints Card Reports no additional complaints Resp Reports no additional complaints GI Reports no additional complaints Reports no additional complaints Physical exam (Primary Care) Vital Signs: Last Vital Signs Temp 98.0 F 10/04/25 13:31 Pulse 78 10/04/25 13:31 Resp 17 10/04/25 13:31 BP 98/64 10/04/25 13:31 Pulse Ox 99 10/04/25 13:31 Oxygen Delivery Method Room Air 10/04/25 13:31 BMI result Body Mass Index 20.5 Tobacco/Smoking Status: Tobacco use Status Tobacco use date assessed 10/04/25 10/04/25 13:32 Patient Tobacco Use Status Never used Tobacco 10/04/25 13:31 e-Cigarette/Vaping Use Never Used 10/04/25 13:31 Thrive Assessment: Date of Thrive Assessment Date Thrive assessed 12/04/24 10/04/25 13:31 Currently or been in a relationship where the following occur: I choose not to answer Const General: no acute distress HENMT Head: Yes normal to inspection Ears: TM's normal bilaterally Face and sinus: Yes normal facial exam Mouth: Normal oral and palatal mucosa present Throat: Yes posterior oropharynx normal Eyes General: appearance normal, both eyes and all related structures Neck Neck: Yes no lymphadenopathy and Yes supple Resp Effort & Inspection: normal respiratory effort Auscultation: clear to auscultation bilaterally Cardio Rhythm: regular rhythm Heart sounds: S1 normal heart sound present and S2 normal heart sound present GI Inspection: Yes normal to inspection Palpation (GI): Soft to palpation Percussion: Yes normal to percussion Auscultation: normal bowel sounds Coding Level of Care Code Est Pt Prev Care 18-39y([id number]) Diagnoses Mild intermittent asthma without complication J45.20 Anemia D64.9 Annual physical exam Z00.00 Lightheadedness R42 Assessment & Plan Assessment & Plan (1) Mild intermittent asthma without complication: Code(s): J45.20 - Mild intermittent asthma, uncomplicated Category: Medical Plan: For worsening dyspnea on exertion obtain PFTs (2) Anemia: Code(s): D64.9 - Anemia, unspecified Category: Medical Plan: Patient will return for fasting blood work including iron study and B12 level (3) Annual physical exam: Code(s): Z00.00 - Encounter for general adult medical examination without abnormal findings Category: Medical Plan: Well-balanced diet regular physical activity discussed with the patient. 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 Patient will return for fasting blood work (4) Lightheadedness: Code(s): R42 - Dizziness and giddiness Category: Medical Plan: Patient was advised to decrease spironolactone to 25 mg a day. Follow-up in 2 months Orders: Orders Comprehensive Met. Panel Today D64.9 - Anemia, unspecified, J45.20 - Mild intermittent asthma, uncomplicated TSH reflex Free T4 Today D64.9 - Anemia, unspecified, J45.20 - Mild intermittent asthma, uncomplicated UA w Microscopic Today D64.9 - Anemia, unspecified, J45.20 - Mild intermittent asthma, uncomplicated D Dimer High Sensitivity Today R06.09 - Other forms of dyspnea IRON PROFILE Today D64.9 - Anemia, unspecified, J45.20 - Mild intermittent asthma, uncomplicated Complete Blood Count Auto Diff Today D64.9 - Anemia, unspecified, J45.20 - Mild intermittent asthma, uncomplicated Vitamin B12 and Folate Today D64.9 - Anemia, unspecified, J45.20 - Mild intermittent asthma, uncomplicated Lipid Panel Today D64.9 - Anemia, unspecified, J45.20 - Mild intermittent asthma, uncomplicated PFT pulmonary function test Today J45.909 - Unspecified asthma, uncomplicated NT Pro B Type Natriuretic Pept Today R06.09 - Other forms of dyspnea
== END 2025-10-04 16:01 | disposition home or self-care (01) ==
LOC: HO.HMCC 13:07
PROVIDERS: PCP Internal Medicine; Visit Provider Internal Medicine
DX: Z00.00 Encounter for general adult medical examination without abnormal findings (principal); J45.20 Mild intermittent asthma, uncomplicated; D64.9 Anemia, unspecified; R42 Dizziness and giddiness

== ENCOUNTER 2025-10-15 10:45 | Outpatient (REF) | payer OTHER, SELFPAY ==
--- OUTSIDE RECORDS SUMMARY | 2025-10-15 13:21 | XMS_ITS | Clinical Summary ---
Author Organization [facility] Address [address] [place] [address] Care Team Providers Care Therapeutic Assistant Name Role Phone Erin Box MD Primary Care Provider [phone] Allergies No known active allergies Medications triamcinolone [...] patient's age to complete this topic Insurance [facility] H[facility] Care Teams Therapeutic Assistant Relationship Specialty Start Date End Date Erin Box MD [address] [place] [address] PCP - General 02/05/25
[2025-10-15 13:41] LABS: MANUAL DIFF FLAG NO
[2025-10-15 13:55] LABS: Hematocrit 34.3 % (37.0-47.0); Hemoglobin 10.5 g/dl (12.0-16.0); Imm Gran Abs Auto 0.01 X10*3/uL (0.00-0.03); Imm Gran Pct Auto 0.3 % (0.0-0.4); Lymphocytes Absolute Auto 1.5 X10*3/uL (1.2-4.9); Mean Corpuscular HGB Conc 30.6 g/dl (31.0-35.0); Mean Corpuscular Hemoglobin 22.0 pg (27.0-33.0); Mean Corpuscular Volume 71.8 fL (80.0-98.0); NRBC Abs Auto 0.000 X10*3/uL (0.0-0.012); NRBC Pct Auto 0.0 /100WBC (0.0-0.2); Platelet Count 205 X10*3/uL (160-400); Red Blood Count 4.78 X10*6/uL (4.20-5.50); White Blood Count 4.0 X10*3/uL (4.8-10.8)
[2025-10-15 14:02] LABS: D Dimer High Sensitivity < 150 NG/ML
[2025-10-15 14:17] LABS: Appearance Urine Clear; Glucose Urine UA Negative (Negative); PH 6.5 (5.0-9.0); Specific Gravity - Urine <= 1.005 (1.005-1.025); UMIC TRIGGER UA YES
[2025-10-15 14:41] LABS: NT Pro B Type Natriuretic Pept 77.4 pg/mL (<300)
[2025-10-15 15:14] LABS: Folate 12.9 ng/mL (> or = 4.0); Vitamin B12 563 pg/mL (200-900)
[2025-10-15 16:29] LABS: Alanine Aminotransferase 29 U/L (0-31); Albumin Level 4.5 g/dL (3.5-5.0); Alkaline Phosphatase 79 U/L (39-117); Anion Gap 11 (12-20); Aspartate Amino Transferase 37 U/L (5-31); Blood Urea Nitrogen 13 mg/dL (9-16); Calcium 9.0 mg/dL (8.4-10.2); Carbon Dioxide 24 mmol/L (22-29); Chloride 109 mmol/L (96-108); Cholesterol 179 mg/dL (<200); Estimated Glomerular Filt Rate > 60; HDL Cholesterol 67 mg/dL (>40); Iron 192 mcg/dL (30-160); Percent Iron Saturation 57 % (15-50); Potassium 4.1 mmol/L (3.3-5.1); Sodium 140 mmol/L (135-145); Total Iron Binding Capacity 336 mcg/dL (228-428); Total Protein 7.2 g/dL (6.5-8.0); Triglycerides 61 mg/dL (<150); Unsaturated Iron Binding 144 ug/dL
== END 2025-10-15 10:46 | disposition home or self-care (01) ==
LOC: HO.HMGCLDS 10:45
PROVIDERS: PCP Internal Medicine; Visit Provider Internal Medicine
DX: R06.09 Other forms of dyspnea (principal); D64.9 Anemia, unspecified; J45.20 Mild intermittent asthma, uncomplicated; Z13.6 Encounter for screening for cardiovascular disorders
CPT/HCPCS: 36415; 80053; 80061; 81001; 82607; 82746; 83540; 83880; 84443; 85025; 85379